=== PATIENT | female | born 1990 | race Caucasian/White ===

== ENCOUNTER 2020-05-25 19:54 | Emergency (ER) | payer OTHER, SELFPAY ==
[2020-05-25 20:07] VITALS: BP 156/96; PULSE 114; RESP 20; O2SAT 99; BMI 38.0
[2020-05-25 20:17] LABS: UTC Strep Screen (Rapid) Positive (Negative)
--- NOTE | 2020-05-25 20:18 | HMH.EDUTC ---
[facility] [place] Disposition Clinical Impression: Strep throat Disposition: Home, Self-Care Condition on Discharge: Good Instructions: Strep Throat, DI for Strep Throat Additional Instructions: Drink plenty of fluids. Take tylenol or ibuprofen for pain or fever. Take the medications as directed. Follow up with your regular doctor. GO TO THE ER FOR ANY WORSENING SYMPTOMS Throw your tooth brush away and get a new one. Prescriptions: Amoxicillin [Amoxicillin 500mg Tab] 500 mg PO TID 10 Days #30 tab Transmission Status: Received by [facility] #[id number] Referrals: PCP,No [Primary Care Provider] - Forms: Work/School Release Time of Disposition: 20:20 Medical Decision Making - Medical Records Medical records reviewed: No: I reviewed the patient's medical records. - Edmar Inquiry Pt receiving controlled substance: No Vital Signs: 05/25/20 20:07 05/25/20 20:30 Temperature 98.0 F Temperature Source Oral Pulse Rate 114 H Pulse Rate [Radial] 114 H Respiratory Rate 20 20 Blood Pressure 156/96 H Blood Pressure [Right Arm] 156/96 H Blood Pressure Mean [Right Arm] 116 Blood Pressure Source Automatic Cuff Blood Pressure Source [Right Arm] Automatic Cuff Blood Pressure Position Sitting Blood Pressure Position [Right Arm] Sitting 02 Sat by Pulse Oximetry 99 Oxygen Delivery Method Room Air Room Air - Lab Data Lab results reviewed: Yes: I reviewed the patient's lab results. Lab Results 05/25/20 20:16: Strep Scn Rapid Clinic Positive A [facility] [place] HPI - General Stated complaint: possible strep throat Time Seen by Provider: 05/25/20 20:18 Mode of Arrival: Ambulatory Source of Information: Patient Limitations: No Limitations Description of Symptoms (Recalled from Triage Doc. by RN): sore throat headache HEENT Symptoms (Recalled from RN notes): Yes Resp Symptoms (Recalled from RN notes): No Skin Symptoms (Recalled from RN notes): No MS Symptoms (Recalled from RN notes): No Functional Status (Recalled from RN notes): wnl - History of Present Illness Provider Complaint: She c/o sore throat since this morning. - Related Data Home Medications Medication Instructions Recorded Confirmed Fluoxetine HCl [Prozac] 20 mg PO DAILY 06/27/19 08/06/19 Previous Rx's Medication Instructions Recorded fluconazole 150 mg tablet 150 mg PO DAILY #10 tab 08/06/19 miconazole nitrate 2 % topical 1 applic TOPICAL BID #71 g 08/06/19 powder Azithromycin [Z-Shadi 250mg Tab*] 250 mg PO UD DOSE PK #6 tab 09/18/19 Brompheniramine/Pseudoephed/Dm 5 ml PO Q6HP PRN #240 syrup 09/18/19 [Bromfed Dm Cough Syrup] methylPREDNISolone [Medrol] 4 mg PO DIRECTED 6 Days #21 09/18/19 tab.ds.pk Amoxicillin [Amoxicillin 500mg Tab] 500 mg PO TID 10 Days #30 tab 05/25/20 Allergies Allergy/AdvReac Type Severity Reaction Status Date / Time No Known Drug Intolerances Allergy Unknown - Verified 08/06/19 14:36 - Worker's Comp Is this a Worker's Comp case?: No [facility] History - Hepatitis A Screen Drug use history?: No High risk sexual behaviors?: No History of sexually transmitted infection?: No Currently employed?: No Childcare worker?: No Do you have indoor plumbing?: Yes Do you have electricity?: Yes Attestation statement:: This patient has been screened for Hepatitis A risk factors. I have reviewed the patient's past medical history: Yes Medical History: Reports:: Depression Denies:: Diabetes Mellitus Type 1, Diabetes Mellitus Type 2 Other Surgeries: Yes: Cholecystectomy, Amputation: No Fractures: No - Social History Smoking Status: Current every day smoker Tobacco Type: cigarettes # Packs/Day (cigarettes): 1 Alcohol Intake: never Substance Use Type: denies use Occupational Status: other Housing: house - Psychiatric History Pschychiatric History:: Reports:: Depression Family Hx:: No significant family history ROS Obtained: Yes All systems reviewed & no additional complaints
[2020-05-25 20:30] VITALS: BP 156/96; PULSE 114; RESP 20; TEMP 36.7; O2SAT 99
== END 2020-05-25 20:31 | disposition home or self-care (01) ==
PROVIDERS: Emergency Provider Nurse Practitioner Family
DX: J02.0 Streptococcal pharyngitis (principal); F33.1 Major depressive disorder, recurrent, moderate; F17.210 Nicotine dependence, cigarettes, uncomplicated; Z90.49 Acquired absence of other specified parts of digestive tract
CPT/HCPCS: 87880; 99201

== ENCOUNTER 2020-05-28 22:22 | Emergency (ER) | payer OTHER, SELFPAY ==
[2020-05-28 22:30] VITALS: BP 139/77; PULSE 117; RESP 16; O2SAT 97
[2020-05-28 22:32] VITALS: BP 139/77; PULSE 116; RESP 16; TEMP 37.9; O2SAT 98; BMI 38.0
--- NOTE | 2020-05-28 22:41 | CT_ITS ---
PROCEDURE: CT SOFT TISSUE NECK W CON CLINICAL HISTORY: tonsil abscess Peritonsillar abscess, pain swelling COMPARISON: No exams were available for comparison TECHNIQUE: Oral Contrast: None IV Contrast: 75 mL Optiray 350 Axial images obtained with sagittal and coronal reformats. All CT scans at the facility use one or more dose reduction, viz: automated exposure control, ma/kV adjustment per patient size (including targeted exams where dose is matched to indication, i.e. head), or iterative reconstruction technique. FINDINGS: There are prominent palatine tonsils right greater than left with some heterogeneous density but no definite ring-enhancing abscess. No soft tissue gas apparent. There are scattered mildly prominent cervical lymph nodes. The lung apices are clear. There is reversal of the cervical lordosis. The epiglottis and glottic region have an unremarkable appearance. The adenoids are slightly prominent with mild prominence of the nasopharyngeal mucosa. There is mild mucosal thickening of the maxillary sinuses. IMPRESSION: 1. Prominent palatine tonsils right more extensive than left with some heterogeneous density suggesting tonsillitis/pharyngitis. No definite abscess. 2. Mild prominence of the adenoids with mildly prominent cervical lymph nodes Dictated b Jefe Mclain MD 05/29/2020 09:07 Jefe Mclain MD in [place] 05/29/2020 09:07
--- NOTE | 2020-05-28 22:51 | HMH.EDGENADL ---
ED Disposition Clinical Impression: Pharyngitis Qualifiers: Pharyngitis/tonsillitis etiology: streptococcus Qualified Code(s): J02.0 - Streptococcal pharyngitis Disposition: Home, Self-Care Condition on Discharge: Good Instructions: DI for Pharyngitis/Tonsillopharyngitis -- Adult Additional Instructions: gargle and use meds and see dr langston saturday 1 pm Prescriptions: predniSONE [Prednisone 20mg Tab] 20 mg PO BID #10 tab Transmission Status: Pending to [facility] #[id number] Referrals: Roxie Carey PA [Primary Care Provider] - Sylvester Langston MD [Staff Physician] - - Critical Care Critical Care Time: No Attestation: On 05/28/20, the high probability of a clinically significant, sudden or life threatening deterioration of the following system(s) required my full and direct attention, intervention and personal management. The time I documented below is in addition to time spent performing reported procedures but includes the following listed in this critical care notation. Medical Decision Making - Medical Records Medical records reviewed: Yes: I reviewed the patient's medical records. - Edmar Inquiry Pt receiving controlled substance: No Vital Signs: 05/28/20 22:30 05/28/20 22:32 05/28/20 23:00 Temperature 100.2 F H Temperature Source Oral Pulse Rate [Right] 117 H 116 H 107 H Respiratory Rate 16 16 18 Blood Pressure [Right Arm] 139/77 139/77 112/53 L Blood Pressure Mean [Right Arm] 97 97 72 Blood Pressure Source [Right Arm] Automatic Cuff Automatic Cuff Automatic Cuff Blood Pressure Position [Right Arm] Supine Sitting Supine 02 Sat by Pulse Oximetry 97 98 96 Oxygen Delivery Method Room Air Room Air Room Air - Lab Data Lab results reviewed: Yes: I reviewed the patient's lab results. Lab Results 05/28/20 22:51: Urine Color Dk yellow, Urine Appearance Sl cloudy, Urine pH 5.5, Ur Specific [place] >= 1.030, Urine Protein Trace, Urine Glucose (UA) Negative, Urine Ketones 1+, Urine Blood Negative, Urine Nitrate Negative, Urine Bilirubin Negative, Urine Urobilinogen 0.2, Ur Leukocyte Esterase Negative, Urine WBC 3-5, Ur Squamous Epith Cells 3-5, Amorphous Sediment Trace, Urine Mucus 1+ 05/28/20 22:51: WBC 10.8, RBC 4.72, Hgb 15.0, Hct 43.0, MCV 91.0, MCH 31.7 H, MCHC 34.8, RDW 12.2, Plt Count 212, MPV 8.6, Neut % (Auto) 81.4 H, Lymph % (Auto) 13.3, [place] % (Auto) 4.6, Eos % (Auto) 0.6, Baso % (Auto) 0.2, Neut # (Auto) 8.8 H, Lymph # (Auto) 1.4, [place] # (Auto) 0.5, Eos # (Auto) 0.1, Baso # (Auto) 0.0 05/28/20 22:51: Sodium 136, Potassium 3.6, Chloride 100, Carbon Dioxide 25, Anion Gap 14.6, BUN 13, Creatinine 0.60, Estimated Creat Clear 243, Estimated GFR 117, Est GFR ( Amer) 141, Glucose 123 H, Calcium 9.1, Total Bilirubin 0.5, AST 22, ALT 22, Alkaline Phosphatase 100, Total Protein 8.7 H, Albumin 4.4, Globulin 4.3 H, Albumin/Globulin Ratio 1.0 L 05/28/20 22:51: Serum HCG, Qual Negative Result diagrams: 05/28/20 22:51 05/28/20 22:51 Orders (Tests/Meds): ED MEDICATIONS Generic Name Dose Route Start Last Admin Trade Name Freq PRN Reason Stop Dose Admin Ceftriaxone Sodium 1 gm/ 50 mls @ 100 mls/hr 05/28/20 22:45 05/28/20 22:51 Sodium Chloride IV 06/11/20 22:44 100 mls/hr Q24H KADY Administration Protocol Sodium Chloride 1,000 mls @ 999 mls/hr 05/28/20 22:45 05/28/20 22:51 Sod Chlor 0.9% 1000ml Bag IV 05/28/20 23:45 999 mls/hr .Q1H1M KADY Administration Discontinued Medications Generic Name Dose Route Start Last Admin Trade Name Freq PRN Reason Stop Dose Admin Ioversol 75 ml 05/28/20 23:43 05/28/20 23:44 Rad-Optiray 350 100ml Vial IV 05/28/20 23:44 75 ml ONCE ONE Administration Protocol Ketorolac Tromethamine 30 mg 05/28/20 22:44 05/28/20 22:51 Toradol 30mg/Ml Vial IV 05/28/20 22:45 30 mg ONCE ONE Administration Methylprednisolone Sodium Succinate 125 mg 05/28/20 22:44 05/28/20 22:51 Solu-Medrol 125mg/2ml Vial
[2020-05-28 23:00] VITALS: BP 112/53; PULSE 107; RESP 18; O2SAT 96
[2020-05-28 23:03] LABS: Basophils % 0.2 % (0.1-2.0); Eosinophils # 0.1 K/mm3 (0.0-0.4); Eosinophils % 0.6 % (0.1-12.0); Lymphocytes # 1.4 K/mm3 (0.7-4.5); Lymphocytes % 13.3 % (10-50); Mean Corpuscular HGB Conc 34.8 g/dL (31.8-35.4); Mean Corpuscular Hemoglobin 31.7 pg (27.0-31.2); Mean Platelet Volume 8.6 fl (7.4-10.4); Monocytes # 0.5 K/mm3 (0.1-1.0); Monocytes % 4.6 % (1.7-9.3); Neutrophils # 8.8 K/mm3 (1.8-7.8); Neutrophils % 81.4 % (37.0-80.0); Platelet Count 212 K/mm3 (142-424); Red Blood Count 4.72 M/mm3 (4.20-5.40); Red Cell Distribution Width 12.2 % (11.5-17.5); White Blood Count 10.8 K/mm3 (4.8-10.8)
[2020-05-28 23:11] LABS: Microscopic, Urine URINE MICROSCOPIC (MICROSCOPIC)
[2020-05-28 23:15] LABS: Alanine Aminotransferase 22 U/L (12-78); Albumin Level 4.4 g/dl (3.5-5.0); Alkaline Phosphatase 100 U/L (38-126); Anion Gap 14.6 mEq/L (5-15); Aspartate Amino Transferase 22 U/L (14-36); Bilirubin,Total 0.5 mg/dl (0.2-1.3); Blood Urea Nitrogen 13 mg/dl (7-17); Calcium 9.1 mg/dl (8.4-10.2); Carbon Dioxide 25 mmol/L (22.0-30.0); Chloride 100 mmol/L (98-107); Creatinine Clearance Estimated 243 mL/min (50-200); Estimated Glomerular Filt Rate 117 ml/min (>60); GFR (African American) 141 ML/MIN (>60); Globulin 4.3 g/dL (1.3-3.2); Glucose 123 mg/dl (74-100); Potassium 3.6 mmoL/L (3.5-5.1); Sodium 136 mmol/L (136-145); Total Protein,Serum 8.7 g/dl (6.3-8.2)
[2020-05-28 23:18] LABS: HCG Qualitative, Serum Negative (Negative)
[2020-05-28 23:19] LABS: Appearance,Urine SL CLOUDY (Clear); Blood, Urine Negative (Negative); Color,Urine DK YELLOW (Yellow); Glucose,Urine (UA) Negative (Negative); Ketones,Urine 1+ (Negative); Leukocyte Esterase,Urine Negative (Negative); Nitrate,Urine Negative (Negative); PH,Urine 5.5 (5.0-8.5); Protein,Urine TRACE (Negative); Specific Gravity, Urine >= 1.030 (1.005-1.030); Urobilinogen,Urine 0.2 EU/dl (0.2)
[2020-05-28 23:20] LABS: Amorphous Sediment,Urine Trace /lpf; Bilirubin,Urine Negative (Negative); Mucus,Urine 1+ /lpf
[2020-05-29] VITALS: BP 121/64; PULSE 94; RESP 18; O2SAT 98
[2020-05-29 00:32] VITALS: BP 118/62; PULSE 96; RESP 16; TEMP 37.3; O2SAT 98
== END 2020-05-29 00:37 | disposition home or self-care (01) ==
PROVIDERS: Emergency Provider Emergency Medicine; PCP Physician Assistant
DX: J02.0 Streptococcal pharyngitis (principal); F33.1 Major depressive disorder, recurrent, moderate; F17.210 Nicotine dependence, cigarettes, uncomplicated
CPT/HCPCS: 70491; 80053; 81001; 84703; 85025; 96365; 96367; 96375; 99284; Q9967

== ENCOUNTER → 2020-06-13 11:59 | Outpatient (CLI) | payer OTHER, SELFPAY ==
--- NOTE | 2020-06-13 12:20 | ECG_ITS ---
APPROVED REPORT Exam: Resting ECG HR:97 bpm ECG Measurements Heart Rate 97 AXES ID 158 P 47 QRSd 78 QRS 52 QT 348 T 44 QTc 441 <Conclusion> Sinus rhythm with motion artifact Incomplete RBBB Borderline ECG Electronically signed by : Mik Celaya, 06/13/2020 18:37:26
[2020-06-13 12:28] LABS: Basophils % 0.1 % (0.1-2.0); Eosinophils # 0.3 K/mm3 (0.0-0.4); Eosinophils % 2.8 % (0.1-12.0); Hematocrit 42.6 % (37.0-47.0); Hemoglobin 14.6 g/dL (12.2-16.2); Lymphocytes # 2.3 K/mm3 (0.7-4.5); Lymphocytes % 24.9 % (10-50); Mean Corpuscular HGB Conc 34.3 g/dL (31.8-35.4); Mean Corpuscular Hemoglobin 31.1 pg (27.0-31.2); Mean Corpuscular Volume 90.9 fl (81-99); Mean Platelet Volume 8.2 fl (7.4-10.4); Monocytes # 0.3 K/mm3 (0.1-1.0); Monocytes % 3.7 % (1.7-9.3); Neutrophils # 6.2 K/mm3 (1.8-7.8); Neutrophils % 68.5 % (37.0-80.0); Platelet Count 245 K/mm3 (142-424); Red Blood Count 4.69 M/mm3 (4.20-5.40); Red Cell Distribution Width 12.5 % (11.5-17.5); White Blood Count 9.1 K/mm3 (4.8-10.8)
[2020-06-13 12:32] LABS: Urine Pregnancy, HCG Qual. Negative (Negative)
[2020-06-13 12:58] LABS: Chloride 106 mmol/L (98-107)
[2020-06-13 12:59] LABS: Potassium 4.4 mmoL/L (3.5-5.1); Sodium 140 mmol/L (136-145)
[2020-06-13 13:01] LABS: Alanine Aminotransferase 24 U/L (12-78); Alkaline Phosphatase 70 U/L (38-126); Anion Gap 10.4 mEq/L (5-15); Aspartate Amino Transferase 21 U/L (14-36); Bilirubin,Total 0.6 mg/dl (0.2-1.3); Blood Urea Nitrogen 8 mg/dl (7-17); Carbon Dioxide 28 mmol/L (22.0-30.0); Estimated Glomerular Filt Rate 144 ml/min (>60); GFR (African American) 174 ML/MIN (>60)
[2020-06-13 13:02] LABS: Albumin Level 4.1 g/dl (3.5-5.0); Albumin/Globulin Ratio 1.3 (1.1-1.8); Calcium 9.4 mg/dl (8.4-10.2); Globulin 3.2 g/dL (1.3-3.2); Glucose 94 mg/dl (74-100); Total Protein,Serum 7.3 g/dl (6.3-8.2)
[2020-06-13 15:25] LABS: Coronavirus 19 IgG Antibody Negative (Negative); Coronavirus 19 IgM Antibody Negative (Negative)
== END ==
PROVIDERS: Visit Provider Otolaryngology
DX: Z01.818 Encounter for other preprocedural examination (principal); J35.8 Other chronic diseases of tonsils and adenoids; J03.01 Acute recurrent streptococcal tonsillitis
CPT/HCPCS: 36415; 80053; 81025; 85025; 86328; 93005

== ENCOUNTER 2020-06-14 05:53 | Day surgery (SDC) | payer OTHER, SELFPAY ==
[2020-06-10 14:45] VITALS: BMI 38.0
[2020-06-14] VITALS (9 sets, daily range): BP systolic 116–161; BP diastolic 68–117; PULSE 84–94; RESP 12–21; TEMP 36.2–36.6; O2SAT 95–100
--- NOTE | 2020-06-14 07:09 | HMH.ANESCL ---
[facility] Anesthesia Checklist - Structural Data Admitted From: Home Planned Operative Procedure/s: tonsillectomy Consent for Planned Operative Procedure(s) Verified: Yes - Additional verifications Anesthesia Reactions: No Hx Blood Transfusions: No Blood Transfusion Reaction: No - Airway Assessment C-Spine Mobility Assessed: Yes TMJ Mobility Assessed: Yes Dentition: Poor Dentition - Neurological Assessment Level of Consciousness: Awake, Alert, Appropriate - Anesthesia Plan Anesthesia Risk discussed: Yes Anesthesia Plan: Verified ASA Class: III Anesthesia Type: General [facility] History I have reviewed the patient's past medical history: Yes Medical History: Reports:: Depression Denies:: Cancer, Diabetes Mellitus Type 1, Diabetes Mellitus Type 2, Internal Pacemaker, MRSA, Seizures *Have you ever received a pneumonia vaccine?: No *Have you received a flu vaccine this season?: Yes (2019) Other Medical History: Denies: Blood Transfusion Reaction Anesthesia experience/problems:: none Other Surgeries: Yes: Cholecystectomy, . No: Pacemaker Amputation: No Fractures: No - *Social History Last grade of school completed: 9th or 10th Smoking Status: Current every day smoker Tobacco Type: cigarettes # Packs/Day (cigarettes): 1 Alcohol Intake: never Substance Use Type: denies use *Occupational Status:: employed Housing: house Household Members: family, children *Travel in the last 8 weeks: None - Psychiatric History Pschychiatric History:: Reports:: Depression Family Hx:: Unable to obtain
--- NOTE | 2020-06-14 08:57 | HMH.OPNOTE ---
Date of procedure: 06/14/20 Pre-op Diagnosis:: 1. Obstructive tonsillitis Post-op Diagnosis:: 1. Obstructive tonsillitis 2. Thickened elongated obstructive uvula Procedure performed:: 1. Tonsillectomy 2. Partial uvulectomy Surgeon:: Sylvester Langston MD AUTOMATION TESTER:: Nasir Toro Anesthesia: GETA Estimated blood loss (mL): 15 Operative findings:: same Operative note:: With the patient under general anesthesia having been given 1 g of Ancef and 10 mg of Decadron the Swann Dangelo gag was inserted. The tonsils were extremely large and they were touching. Using the harmonic scalpel the right tonsil was removed and submitted and then the left tonsil was removed and submitted. At that point it was evident that the uvula was very thickened and very enlarged and accordingly a partial uvulectomy was done. Surgicel snow was placed in both tonsillar cavities and the pillars were oversewn and the base of the uvula was also oversewn with 2-0 Vicryl. Blood loss for all of the procedure was 15 cc and the bleeding was all stopped. The patient tolerated the procedure well and was sent to recovery in good general condition. Condition: stable Disposition: PACU Complications:: none
--- NOTE | 2020-06-14 09:11 | P.PN_ITS ---
[facility] Anesthesia Record Part I Intake, IV Amount: 1,500 Estimated blood loss (mL): 20 Urine output (mL): 0 Blood Pressure: 160/100 SaO2: 96 Pulse Rate: 90 Respiratory Rate: 12 Temperature: 97.5 F Patient is:: Awake, Stable Stable to PACU at:: 09:05
--- NOTE | 2020-06-15 10:18 | P.PN_ITS ---
[facility] Anesthesia Record Part II Discharge Time: 09:35 Destination: Surgical Day Care (OP Surgery) PACU nurse assessment reviewed?: Yes Patient Condition:: Good Anesthesia Complications:: None Swallowing reflex intact?: Yes Cyanosis?: No Blood Pressure: 132/77 Pulse Rate: 90 Temperature: 97.5 F Mental Status: Unresponsive Pain level:: 5 Nausea and/or vomitting:: None Intake, IV Amount: 0
[2020-06-15 10:20] VITALS: BP 132/77; PULSE 90; TEMP 36.4
== END 2020-06-14 10:05 ==
LOC: OR 05:54
PROVIDERS: PCP Physician Assistant; Visit Provider Otolaryngology
PROC: (CPT 42826; principal; 2020-06-14 07:30)
DX: J03.01 Acute recurrent streptococcal tonsillitis (principal); J35.8 Other chronic diseases of tonsils and adenoids; K13.79 Other lesions of oral mucosa; F32.9 Major depressive disorder, single episode, unspecified; Z90.49 Acquired absence of other specified parts of digestive tract; Z72.0 Tobacco use
CPT/HCPCS: 42826; 42140; 96374; J2405; J2710

== ENCOUNTER → 2021-04-05 18:01 | Outpatient (CLI) | payer OTHER, SELFPAY ==
[2021-04-05 18:33] LABS: Alanine Aminotransferase 27 U/L (12-78); Albumin Level 4.5 g/dl (3.5-5.0); Albumin/Globulin Ratio 1.5 (1.1-1.8); Alkaline Phosphatase 78 U/L (38-126); Anion Gap 11.4 mEq/L (5-15); Aspartate Amino Transferase 26 U/L (14-36); Bilirubin,Total 0.5 mg/dl (0.2-1.3); Blood Urea Nitrogen 10 mg/dl (7-17); Calcium 9.3 mg/dl (8.4-10.2); Carbon Dioxide 26 mmol/L (22.0-30.0); Chloride 105 mmol/L (98-107); Chol/HDL Ratio 4.9 (1-3.5); Cholesterol 148 mg/dl (140-200); Estimated Glomerular Filt Rate 144 ml/min (>60); GFR (African American) 174 ML/MIN (>60); Glucose 91 mg/dl (74-100); HDL Cholesterol 30 mg/dl (40-60); Potassium 4.4 mmoL/L (3.5-5.1); Sodium 138 mmol/L (136-145); Total Protein,Serum 7.5 g/dl (6.3-8.2); Triglycerides 170 mg/dl (30-150); VLDL Cholesterol 34 mg/dL (0-40)
[2021-04-05 18:40] LABS: Basophils % 0.3 % (0.1-2.0); Eosinophils # 0.4 K/mm3 (0.0-0.4); Eosinophils % 5.3 % (0.1-12.0); Hematocrit 41.1 % (37.0-47.0); Hemoglobin 14.7 g/dL (12.2-16.2); Lymphocytes # 2.4 K/mm3 (0.7-4.5); Lymphocytes % 32.9 % (10-50); Mean Corpuscular HGB Conc 35.8 g/dL (31.8-35.4); Mean Corpuscular Hemoglobin 31.9 pg (27.0-31.2); Mean Platelet Volume 9.2 fl (7.4-10.4); Monocytes # 0.4 K/mm3 (0.1-1.0); Monocytes % 5.4 % (1.7-9.3); Neutrophils % 56.1 % (37.0-80.0); Platelet Count 263 K/mm3 (142-424); Red Blood Count 4.62 M/mm3 (4.20-5.40); Red Cell Distribution Width 12.7 % (11.5-17.5); White Blood Count 7.2 K/mm3 (4.8-10.8)
[2021-04-05 18:50] LABS: Free T4 (Free Thyroxine) 1.07 ng/dl (0.78-2.19)
[2021-04-05 19:04] LABS: Thyroid Stimulating Hormone 2.49 uIU/mL (0.465-4.68)
== END ==
PROVIDERS: Visit Provider Physician Assistant
DX: R42 Dizziness and giddiness (principal); R53.83 Other fatigue
CPT/HCPCS: 80053; 80061; 84439; 84443; 85025

== ENCOUNTER 2021-07-07 11:16 | Emergency (ER) | payer OTHER, SELFPAY ==
[2021-07-07 12:05] VITALS: BP 142/70; PULSE 91; RESP 16; TEMP 36.7; O2SAT 96; BMI 39.5
--- NOTE | 2021-07-07 13:08 | HMH.EDUTC ---
[facility] [place] Disposition Clinical Impression: Low back strain Qualifiers: Encounter type: initial encounter Qualified Code(s): S39.012A - Strain of muscle, fascia and tendon of lower back, initial encounter Low back pain with sciatica Qualifiers: Chronicity: acute Back pain laterality: right Sciatica laterality: sciatica of right side Qualified Code(s): M54.41 - Lumbago with sciatica, right side Disposition: Home, Self-Care Condition on Discharge: Good Instructions: Low Back Pain, DI for Low Back Pain, Cyclobenzaprine, Ketorolac Injection Additional Instructions: Go home and rest. It would be best if you rested tomorrow too. No heavy lifting. No twisting. Take the oral medications as directed. The muscle relaxer (cyclobenzaprine-flexeril) will make you drowsy, so don't drive or operate heavy machinery after taking it. Don't start the oral steroids (medrol dose pack) until tomorrow, since you had the shots in here today. Follow up with your regular doctor. GO TO THE ER FOR ANY WORSENING SYMPTOMS OR CONCERN, ESPECIALLY BOWEL OR BLADDER ISSUES, SADDLE AREA NUMBNESS, FEVER, ETC Prescriptions: Cyclobenzaprine HCl [Cyclobenzaprine 10mg Tab] 10 mg PO BIDP PRN #20 tab PRN Reason: Muscle Spasm Transmission Status: Received by [facility] methylPREDNISolone [Medrol] 4 mg PO DIRECTED 6 Days #21 packet Transmission Status: Received by [facility] Referrals: Roxie Carey PA [Primary Care Provider] - Forms: Work/School Release Time of Disposition: 13:17 Medical Decision Making - Medical Records Medical records reviewed: No: I reviewed the patient's medical records. - Edmar Inquiry Pt receiving controlled substance: No Vital Signs: 07/07/21 12:05 07/07/21 13:24 Temperature 98.0 F 98.0 F Temperature Source Oral Pulse Rate 91 H Pulse Rate [Right Radial] 91 H Respiratory Rate 16 16 Blood Pressure 142/70 H Blood Pressure [Right Arm] 142/70 H Blood Pressure Mean [Right Arm] 94 Blood Pressure Source [Right Arm] Automatic Cuff Blood Pressure Position [Right Arm] Sitting 02 Sat by Pulse Oximetry 96 Oxygen Delivery Method Room Air - Lab Data Lab results reviewed: Yes: I reviewed the patient's lab results. Orders (Tests/Meds): ED MEDICATIONS Discontinued Medications Generic Name Dose Route Start Last Admin Trade Name Katrin PRN Reason Stop Dose Admin Ketorolac Tromethamine 60 mg 07/07/21 12:32 07/07/21 12:46 Ketorolac 60mg/2ml Vial IM 07/07/21 12:33 60 mg ONCE ONE Administration Methylprednisolone Sodium Succinate 125 mg 07/07/21 12:32 07/07/21 12:46 Methylprednisolone Sod Succ 125mg Vial IM 07/07/21 12:33 125 mg ONCE ONE Administration [facility] [place] HPI - General Stated complaint: back pains Time Seen by Provider: 07/07/21 12:10 Mode of Arrival: Ambulatory Source of Information: Patient Limitations: No Limitations Description of Symptoms (Recalled from Triage Doc. by RN): Pt c/o back pain that extends down her rt leg x2 days HEENT Symptoms (Recalled from RN notes): No Resp Symptoms (Recalled from RN notes): No Skin Symptoms (Recalled from RN notes): No MS Symptoms (Recalled from RN notes): Yes (back pain extending down rt leg) Functional Status (Recalled from RN notes): n/a - History of Present Illness Provider Complaint: She c/o low back pain that radiates down her right leg that began yesteday. She has a history of low back pain, but it has never radiated down her legs. She denies any urinary complaints and she does not get UTIs at all usually. She denies any recent fall or injury. She has been having to work harder and lift heavy things at her work more than normal, but she did not realize she had injured herself in anyway, until her pain worsened and started radiating down her leg. - Related Data Previous Rx's Medication Instructions Recorded hydroxyzine pamoate 25 mg capsule 25 mg PO QHS #30 cap 04/05/21 me
[2021-07-07 13:24] VITALS: BP 142/70; PULSE 91; RESP 16; TEMP 36.7; O2SAT 96
== END 2021-07-07 13:25 | disposition home or self-care (01) ==
PROVIDERS: Emergency Provider Nurse Practitioner Family; PCP Physician Assistant
DX: S39.012A Strain of muscle, fascia and tendon of lower back, initial encounter (principal); X50.0XXA Overexertion from strenuous movement or load, initial encounter; Y92.89 Other specified places as the place of occurrence of the external cause
CPT/HCPCS: 96372; 99202; G0463

== ENCOUNTER → 2021-11-27 16:00 | Outpatient (CLI) | payer OTHER, SELFPAY | PROVIDERS: Visit Provider Nurse Practitioner Family | DX: Z20.822 Contact with and (suspected) exposure to COVID-19 (principal) | CPT/HCPCS: C9803; U0003; U0005 ==

== ENCOUNTER 2022-07-15 11:42 | Emergency (ER) | payer OTHER, SELFPAY ==
[2022-07-15 11:50] VITALS: BP 159/81; PULSE 112; RESP 18; TEMP 36.7; O2SAT 98; BMI 42.0
--- NOTE | 2022-07-15 12:18 | EXP.UTC ---
Discharge Plan Disposition Patient Disposition: Home, Self-Care Condition: Good Prescriptions Prescriptions: New benzonatate [benzonatate] 100 mg capsule 100 mg PO TIDP PRN (Reason: Cough) Qty: 30 0RF rfpkxhitnmqjwts-uufttuwrl-VL [Bromfed DM] 2-30-10 mg/5 mL Syrup 5 ml PO Q6H PRN (Reason: Cough) Qty: 240 0RF ibuprofen [IBU] 800 mg tablet 800 mg PO Q8HP PRN (Reason: Moderate Pain) Qty: 30 0RF No Action meclizine 12.5 mg tablet 12.5 mg PO TID PRN (Reason: dizziness) Qty: 30 0RF Referrals Follow up/Referrals: Leticia Selby APRN [Primary Care Provider] - See instructions Activity Restrictions/Add. Instructions Additional Instructions/Restrictions: Drink plenty of fluids. Take tylenol or ibuprofen for pain or fever. Take the medications as directed. Follow up with your regular doctor. GO TO THE ER FOR ANY WORSENING SYMPTOMS Throw your tooth brush away and get a new one. Quarantine until you know the results of your covid-19 test. Notify your school or workplace of your results and follow their instructions regarding return to work/school. Don't start the oral steroids until tomorrow, since you had the shot here today. The cough medication (promethazine dm) will make you drowsy, so don't drive or operate heavy machinery after taking it. The pyridium will make your urine turn orange, this is an expected side effect. It will stain your clothes if it comes into contact with them. We will culture the urine. That will tell what bacteria is causing your infection and which antibiotics will treat it best. Sometimes the first antibiotic we prescribe turns out to not work against different bacteria. So, make sure you follow up within 3 days if you are not getting better. Clinical Impressions Clinical Impression: Viral syndrome, Acute viral pharyngitis Stand Alone Forms Stand Alone Forms: Work/School Release Instructions Patient Instructions: DI for Viral Syndrome, Coronavirus Disease 2019, Preventing the Spread of Coronavirus Discharge Instructions Discharge ED Provider: Lionel Paulino [facility] General Stated complaint: headache,body aches,stomach pain Mode of Arrival: Ambulatory Source of Information: Patient Limitations: No Limitations Time Seen by Provider: 07/15/22 12:16 Description of Symptoms (Recalled from Triage Doc. by RN): PATIENT C/O BODY ACHES, HEADACHE, WEAKNESS AND CHILLS THAT STARTED YESTERDAY HEENT Symptoms (Recalled from RN notes): Yes Resp Symptoms (Recalled from RN notes): No Skin Symptoms (Recalled from RN notes): No MS Symptoms (Recalled from RN notes): No Functional Status (Recalled from RN notes): WNL History of Present Illness Provider Complaint: She states that for the past 1 day she has had generalized body aches, chills, low grade fever and sore throat. Related Data Previous Rx's Medication Instructions Recorded meclizine 12.5 mg tablet 12.5 mg PO TID PRN dizziness #30 04/05/21 tabs benzonatate 100 mg capsule 100 mg PO TIDP PRN Cough #30 caps 07/15/22 acwgwveswqrisil-gblyjzhlwgvqudc-PT 5 ml PO Q6H PRN Cough #240 mL 07/15/22 2 mg-30 mg-10 mg/5 mL oral syrup (Bromfed DM) ibuprofen 800 mg tablet (IBU) 800 mg PO Q8HP PRN Moderate Pain 07/15/22 #30 tabs Allergies Allergy/AdvReac Type Severity Reaction Status Date / Time No Known Allergies Allergy Verified 04/05/21 13:40 Worker's Comp Is this a Worker's Comp case?: No PFSH PFSH Medical History Anxiety Depression Migraine Surgical History History of section History of cholecystectomy History of tonsillectomy Social History Smoking Status: Current every day smoker tobacco type: cigarettes packs per day: 1 second hand exposure: No alcohol intake: never substance use type: denies use current occupational
[2022-07-15 12:57] VITALS: BP 159/81; PULSE 112; RESP 18; TEMP 36.7; O2SAT 98
[2022-07-15 12:57] LABS: UTC Strep Screen (Rapid) Negative (Negative)
== END 2022-07-15 13:00 | disposition home or self-care (01) ==
PROVIDERS: Emergency Provider Nurse Practitioner Family; PCP Nurse Practitioner Family
DX: U07.1 COVID-19 (principal)
CPT/HCPCS: 87880; 99212; C9803; G0463; U0003; U0005

== ENCOUNTER 2024-05-29 16:39 | Outpatient (CLI) | payer OTHER, SELFPAY ==
[2024-06-01 21:08] LABS: Neisseria gonorrhoeae, NAA Negative (Negative)
== END 2024-05-29 23:59 | disposition home or self-care (01) ==
LOC: LAB.DROPOF 16:40
PROVIDERS: PCP Obstetrics & Gynecology; Visit Provider Obstetrics & Gynecology
DX: R10.2 Pelvic and perineal pain (principal)
CPT/HCPCS: 87491; 87591

== ENCOUNTER 2025-01-19 13:48 | Emergency (ER) | payer OTHER, SELFPAY ==
--- NOTE | 2025-01-19 13:50 | ED_ITS ---
Discharge Plan Disposition Patient Disposition: Home, Self-Care Prescriptions Prescriptions: No Action topiramate 25 mg tablet 25 mg PO BID Referrals Follow up/Referrals: Leticia Selby APRN [Primary Care Provider] - See instructions Activity Restrictions/Add. Instructions Additional Instructions/Restrictions: Continue following with your PCP for hypertension and weight loss. Know that most weight loss medications will cause hypertension, so make sure to inform them of that as well. Clinical Impressions Clinical Impression: Hypertension, Encounter for medical assessment Print Language Print Language: Nepalese Discharge ED Provider: Reynold Alvarado Adult HPI <JOSE Alonzo - Last Filed: 01/19/25 13:59> General Chief complaint: Recheck/Abnormal Lab/Rx Stated complaint: high b/p, headache, numbness/weakness in legs Time Seen by Provider: 01/19/25 13:50 Related Data Home Medications ?Medication ?Instructions ?Recorded ?Confirmed topiramate 25 mg tablet 25 mg PO BID 07/08/24 07/08/24 Allergies Allergy/AdvReac Type Severity Reaction Status Date / Time No Known Allergies Allergy Verified 07/08/24 13:30 <Rc Summers MD - Last Filed: 01/19/25 14:52> History of Present Illness HPI narrative: Please note that above description of symptoms, in this electronic medical record under categorization of recalled from ER triage doctor by RN are reflective of an initial nursing assessment, however, is not reflective of my full history and physical exam that was personally taken and clarified. Consequentially, this preceding description of symptoms, which may include the patient's categorized chief complaint in the EMR, do not reflect my personal clinical impression, and the ultimate description of history of present illness and patient stated complaints should be deferred to this section of the note. Unless stated otherwise or congruent with this section of the note, additional signs, symptoms, or incongruence should be interpreted as inaccurate with my clinical impression. PFSH <JOSE Alonzo - Last Filed: 01/19/25 13:59> [facility] Disclaimer: The information contained in this section may have been updated after the patient was seen, as this information can be updated by other users. Medical History Anxiety Migraine Depression Surgical History History of tonsillectomy History of section History of cholecystectomy Social History Smoking Status: Current every day smoker tobacco type: cigarettes packs per day: 1 second hand exposure: No alcohol intake: never substance use type: denies use current occupational status: employed Travel in the last 8 weeks: None household members: family and children housing: house current occupation: [employer] caffeine: Yes Have you lived/traveled outside [place] in past 30 days?: No Contact w/someone who lives/traveled outside [place] past 30 days?: No Exposure to someone with infectious disease in past 14 days?: No Do you have a fever (greater than 100.4 F or 38 C)?: No Have you tested positive for COVID-19: No Exposed to someone with COVID-19 in past 14 days?: No Do you have a sore throat?: No Do you have a cough?: No Do you have any weakness?: Yes Do you have any diarrhea?: No Are you experiencing any unusual bleeding?: No Do you have any muscle aches/pain?: No Do you have any abdominal pain?: No Are you experiencing loss of taste or smell?: No Other Medical History Have you received the Flu Vaccine for this season: Yes (2019) Have you received the Pneumonia Vaccine: Yes <JOSE Alonzo - Last Filed: 01/19/25 13:59> ROS Obtained: Yes Systems reviewed as appropriate & no additional complaints except as documented Physical Exam <JOSE Alonzo - Last Filed: 01/19/25 13:59> General General appearance: alert and in no apparent distress Head Head exam: atraumatic and normal inspection Eye Eye exam: Present normal appearance, PERRL and EOMI ENT ENT exam: Present normal exam, normal oropharynx and mucous membranes moist Neck Neck exam: Present normal inspection, full ROM and trachea midline; Absent lymphadenopathy Chest Chest inspection: Present normal inspection and symmetric chest wall rise Respiratory Respiratory exam: Present normal lung sounds bilaterally; Absent accessory muscle use Cardiovascular Cardiovascular exam: Present regular rate, normal rhythm, normal heart sounds, +S1 and +S2 Abdominal Exam Abdominal exam: Present soft and normal bowel sounds; Absent tenderness, guarding or rebound Extremities Exam Extremities exam: Present normal inspection and full ROM Neurological Exam Neurological exam: Present alert, oriented X3 and CN II-XII intact Psychiatric Psychiatric exam: Present normal affect and normal mood Skin Skin exam: Present warm, dry and normal color Lymphatic Lymphatic Findings: no adenopathy Medical Decision Making <JOSE Alonzo - Last Filed: 01/19/25 13:59> Medical Records Screening: Per USPSTF and CDC recommendations, given the prevalence of disease in our region, it is our hospital?s policy to screen for HIV and viral Hepatitis for all patients aged 18 and over and those with ongoing risk factors. Vital Signs: 01/19/25 14:00 01/19/25 14:30 01/19/25 16:46 Temperature 98.2 F 98.0 F Temperature Source Oral Oral Pulse Rate 88 90 Pulse Rate [Left Radial] 103 H Respiratory Rate 20 18 Blood Pressure 143/92 H 160/99 H Blood Pressure [Right Arm] 154/97 H Blood Pressure Mean [Right Arm] 116 Blood Pressure Source Automatic Cuff Blood Pressure Position Sitting 02 Sat by Pulse Oximetry 99 99 Oxygen Delivery Method Room Air Room Air Room Air Lab Data Lab Results 01/19/25 13:57: Urine Color Yellow, Urine Appearance Clear, Urine pH 6.0, Ur Specific [place] 1.020, Urine Protein Negative, Urine Glucose (UA) Negative, Urine Ketones Negative, Urine Blood Negative, Urine Nitrate Negative, Urine Bilirubin Negative, Urine Urobilinogen 0.2, Ur Leukocyte Esterase 1+ A, Urine RBC None, Urine WBC 3-5, Ur Squamous Epith Cells 5-10, Urine Bacteria Trace, Urine Mucus 1+ 01/19/25 15:07: WBC 7.2, RBC 4.09 L, Hgb 12.7, Hct 37.3, MCV 91.2, MCH 31.1, MCHC 34.0, RDW 11.5, Plt Count 235, MPV 10.4, Neut % (Auto) 61.5, Lymph % (Auto) 27.3, [place] % (Auto) 5.0, Eos % (Auto) 6.1, Baso % (Auto) 0.0 L, Neut # (Auto) 4.4, Lymph # (Auto) 2.0, [place] # (Auto) 0.4, Eos # (Auto) 0.4, Baso # (Auto) 0.0, Sodium 142, Potassium 3.8, Chloride 111 H, Carbon Dioxide 21 L, Anion Gap 13.8, BUN 6 L, Creatinine 0.40 L, Estimated Creat Clear 368 H, Estimated GFR 182, Est GFR ( Amer) 220, Glucose 80, Calcium 8.5, Total Bilirubin 0.6, AST 29, ALT 22, Alkaline Phosphatase 77, Troponin I < 0.01, NT-Pro-B Natriuret Pep 84.1, Total Protein 6.9, Albumin 4.2, Globulin 2.7, Albumin/Globulin Ratio 1.6, TSH 1.81, Thyroxine (T4) 11.0 01/19/25 15:07 01/19/25 15:07 Orders (Tests/Meds): ORDERS Category Date Time Status CBC w/Auto Diff [Complete Blood Count Auto Diff] Stat Lab 01/19/25 15:07 Completed CMP [Comprehensive Metabolic Panel] Stat Lab 01/19/25 15:07 Completed NT Pro Brain Natriuretic Pep. Stat Lab 01/19/25 15:07 Completed T4 (Thyroxine) Stat Lab 01/19/25 15:07 Completed TSH [Thyroid Stimulating Hormone] Stat Lab 01/19/25 15:07 Completed Trop I [Troponin I] Stat Lab 01/19/25 15:07 Completed UA [Urinalysis and Microscopic] Stat Lab 01/19/25 13:57 Completed Urine Culture Stat Micro 01/19/25 13:57 Received Medical Decision Narrative: In summary patient is a [age, sex] who presents to the emergency department for evaluation of [complaint]. Patient is [hemodynamically stable/unstable] upon arrival, [febrile/afebrile]. [Unremarkable physical exam, nonfocal exam versus focal remarkable exam]. Differential diagnosis includes [DDx]. Initial workup will be conducted with [hematologic labs, imaging, respiratory swab, describe workup]. Initial interventions include [crystalloid bolus, medications, p.o. challenge, etc.] initial workup reviewed by me [hematologic labs are remarkable for... Imaging remarkable for... Urinalysis remarkable for]. Upon repeat evaluation [patient had acceptable resolution of symptoms, had persistent pain for which additional interventions were conducted (describe interventions), tolerated p.o., was ambulatory, etc.]. Given this [patient is appropriate for discharge at this time and will be discharged with a prescription for... The case was discussed with hospital medicine regarding management and they will admit the patient their service for continued evaluation at this time... Etc.] Places where you can increase complexity: I informally interpreted the patient's chest x-ray or CT read and is remarkable for... Documenting what the air sampling and monitoring shows with rate and rhythm Consideration of test but deferring. Ex: I considered chest x-ray on this patient however given that they have no oxygen requirement and are clear to auscultation all lung tuttle will be deferred. Social determinants of health: Given that patient is undomiciled increases complexity. Given that patient has polysubstance abuse compounds all aspects of care <Rc Summers MD - Last Filed: 01/19/25 14:52> Medical Records Medical records reviewed: Yes I reviewed the patient's medical records. Edmar Inquiry Pt receiving controlled substance: No Edmar was queried for this patient: No Vital Signs: 01/19/25 14:00 01/19/25 14:30 01/19/25 16:46 Temperature 98.2 F 98.0 F Temperature Source Oral Oral Pulse Rate 88 90 Pulse Rate [Left Radial] 103 H Respiratory Rate 20 18 Blood Pressure 143/92 H 160/99 H Blood Pressure [Right Arm] 154/97 H Blood Pressure Mean [Right Arm] 116 Blood Pressure Source Automatic Cuff Blood Pressure Position Sitting 02 Sat by Pulse Oximetry 99 99 Oxygen Delivery Method Room Air Room Air Room Air Lab Data Lab Results 01/19/25 13:57: Urine Color Yellow, Urine Appearance Clear, Urine pH 6.0, Ur Specific [place] 1.020, Urine Protein Negative, Urine Glucose (UA) Negative, Urine Ketones Negative, Urine Blood Negative, Urine Nitrate Negative, Urine Bilirubin Negative, Urine Urobilinogen 0.2, Ur Leukocyte Esterase 1+ A, Urine RBC None, Urine WBC 3-5, Ur Squamous Epith Cells 5-10, Urine Bacteria Trace, Urine Mucus 1+ 01/19/25 15:07: WBC 7.2, RBC 4.09 L, Hgb 12.7, Hct 37.3, MCV 91.2, MCH 31.1, MCHC 34.0, RDW 11.5, Plt Count 235, MPV 10.4, Neut % (Auto) 61.5, Lymph % (Auto) 27.3, [place] % (Auto) 5.0, Eos % (Auto) 6.1, Baso % (Auto) 0.0 L, Neut # (Auto) 4.4, Lymph # (Auto) 2.0, [place] # (Auto) 0.4, Eos # (Auto) 0.4, Baso # (Auto) 0.0, Sodium 142, Potassium 3.8, Chloride 111 H, Carbon Dioxide 21 L, Anion Gap 13.8, BUN 6 L, Creatinine 0.40 L, Estimated Creat Clear 368 H, Estimated GFR 182, Est GFR ( Amer) 220, Glucose 80, Calcium 8.5, Total Bilirubin 0.6, AST 29, ALT 22, Alkaline Phosphatase 77, Troponin I < 0.01, NT-Pro-B Natriuret Pep 84.1, Total Protein 6.9, Albumin 4.2, Globulin 2.7, Albumin/Globulin Ratio 1.6, TSH 1.81, Thyroxine (T4) 11.0 Orders (Tests/Meds): ORDERS Category Date Time Status CBC w/Auto Diff [Complete Blood Count Auto Diff] Stat Lab 01/19/25 15:07 Completed CMP [Comprehensive Metabolic Panel] Stat Lab 01/19/25 15:07 Completed NT Pro Brain Natriuretic Pep. Stat Lab 01/19/25 15:07 Completed T4 (Thyroxine) Stat Lab 01/19/25 15:07 Completed TSH [Thyroid Stimulating Hormone] Stat Lab 01/19/25 15:07 Completed Trop I [Troponin I] Stat Lab 01/19/25 15:07 Completed UA [Urinalysis and Microscopic] Stat Lab 01/19/25 13:57 Completed Urine Culture Stat Micro 01/19/25 13:57 Received Medical Decision Narrative: 34-year-old female with history of obesity currently on phentermine by PCP for weight loss presenting with hypertension. She states that she has been in the 140s to 160s systolic. Most recent blood pressure prior to arrival to the emergency department in the 120s systolic. Denies any other symptoms. She states she has chronic back pain and has been having intermittent tingling in her hands and her feet as well as some back pain, but denies bowel or bladder dysfunction, unilateral deficits, strokelike symptoms otherwise, chest pain, nausea, vomiting, lightheadedness, syncope, or any other concerns. Patient states that she talked to her primary care provider who recommended coming to the emergency department for further evaluation. Patient states that she is currently asymptomatic, wants to know why her blood pressure is so high. Currently 140s systolic. Cardiopulmonary exam within normal limits, no lower extremity edema. Pulses equal symmetric temporal extremities. Patient ambulatory and neurologically intact. Differential includes iatrogenic hypertension in the setting of vasoactive substance for weight loss, primary hypertension, secondary hypertension, among others. Patient requesting labs because I am unable to view labs from primary care provider's office. These were obtained out of abundance of caution. On independent interpretation, urinalysis negative. EKG independently interpreted. Sinus rhythm 89 bpm with IN 179, QRS 93, QTc 398. Normal axis and no acute ischemic change.I imagine labs were all returned negative given very clinically well-appearing patient. However, prior to disposition and labs, care handed off to oncoming physician <Reynold Alvarado MD - Last Filed: 01/20/25 20:03> Vital Signs: 01/19/25 14:00 01/19/25 14:30 01/19/25 16:46 Temperature 98.2 F 98.0 F Temperature Source Oral Oral Pulse Rate 88 90 Pulse Rate [Left Radial] 103 H Respiratory Rate 20 18 Blood Pressure 143/92 H 160/99 H Blood Pressure [Right Arm] 154/97 H Blood Pressure Mean [Right Arm] 116 Blood Pressure Source Automatic Cuff Blood Pressure Position Sitting 02 Sat by Pulse Oximetry 99 99 Oxygen Delivery Method Room Air Room Air Room Air Lab Data Lab Results 01/19/25 13:57: Urine Color Yellow, Urine Appearance Clear, Urine pH 6.0, Ur Specific [place] 1.020, Urine Protein Negative, Urine Glucose (UA) Negative, Urine Ketones Negative, Urine Blood Negative, Urine Nitrate Negative, Urine Bilirubin Negative, Urine Urobilinogen 0.2, Ur Leukocyte Esterase 1+ A, Urine RBC None, Urine WBC 3-5, Ur Squamous Epith Cells 5-10, Urine Bacteria Trace, Urine Mucus 1+ 01/19/25 15:07: WBC 7.2, RBC 4.09 L, Hgb 12.7, Hct 37.3, MCV 91.2, MCH 31.1, MCHC 34.0, RDW 11.5, Plt Count 235, MPV 10.4, Neut % (Auto) 61.5, Lymph % (Auto) 27.3, [place] % (Auto) 5.0, Eos % (Auto) 6.1, Baso % (Auto) 0.0 L, Neut # (Auto) 4.4, Lymph # (Auto) 2.0, [place] # (Auto) 0.4, Eos # (Auto) 0.4, Baso # (Auto) 0.0, Sodium 142, Potassium 3.8, Chloride 111 H, Carbon Dioxide 21 L, Anion Gap 13.8, BUN 6 L, Creatinine 0.40 L, Estimated Creat Clear 368 H, Estimated GFR 182, Est GFR ( Amer) 220, Glucose 80, Calcium 8.5, Total Bilirubin 0.6, AST 29, ALT 22, Alkaline Phosphatase 77, Troponin I < 0.01, NT-Pro-B Natriuret Pep 84.1, Total Protein 6.9, Albumin 4.2, Globulin 2.7, Albumin/Globulin Ratio 1.6, TSH 1.81, Thyroxine (T4) 11.0 Orders (Tests/Meds): ORDERS Category Date Time Status CBC w/Auto Diff [Complete Blood Count Auto Diff] Stat Lab 01/19/25 15:07 Completed CMP [Comprehensive Metabolic Panel] Stat Lab 01/19/25 15:07 Completed NT Pro Brain Natriuretic Pep. Stat Lab 01/19/25 15:07 Completed T4 (Thyroxine) Stat Lab 01/19/25 15:07 Completed TSH [Thyroid Stimulating Hormone] Stat Lab 01/19/25 15:07 Completed Trop I [Troponin I] Stat Lab 01/19/25 15:07 Completed UA [Urinalysis and Microscopic] Stat Lab 01/19/25 13:57 Completed Urine Culture Stat Micro 01/19/25 13:57 Received Medical Decision Narrative: 34-year-old female with history of obesity currently on phentermine by PCP for weight loss presenting with hypertension. She states that she has been in the 140s to 160s systolic. Most recent blood pressure prior to arrival to the emergency department in the 120s systolic. Denies any other symptoms. She states she has chronic back pain and has been having intermittent tingling in her hands and her feet as well as some back pain, but denies bowel or bladder dysfunction, unilateral deficits, strokelike symptoms otherwise, chest pain, nausea, vomiting, lightheadedness, syncope, or any other concerns. Patient states that she talked to her primary care provider who recommended coming to the emergency department for further evaluation. Patient states that she is currently asymptomatic, wants to know why her blood pressure is so high. Currently 140s systolic. Cardiopulmonary exam within normal limits, no lower extremity edema. Pulses equal symmetric temporal extremities. Patient ambulatory and neurologically intact. Differential includes iatrogenic hypertension in the setting of vasoactive substance for weight loss, primary hypertension, secondary hypertension, among others. Patient requesting labs because I am unable to view labs from primary care provider's office. These were obtained out of abundance of caution. On independent interpretation, urinalysis negative. EKG independently interpreted. Sinus rhythm 89 bpm with IN 179, QRS 93, QTc 398. Normal axis and no acute ischemic change.I imagine labs were all returned negative given very clinically well-appearing patient. However, prior to disposition and labs, care handed off to oncoming physician Reynold Alvarado MD GABRIELLA: I assumed care of this patient from the previous emergency medicine physician. Laboratory analysis reveals no acute findings. Patient reports improvement of symptoms upon repeat evaluation, blood pressure within range that appears stable for discharge at this time. Patient will follow-up with PCP. Return precautions given. Critical Care <Rc Summers MD - Last Filed: 01/19/25 14:52> Critical Care Time Critical Care Time: No
[2025-01-19 14:00] VITALS: BP 154/97; PULSE 103; RESP 20; TEMP 36.8; O2SAT 99; BMI 38.7
[2025-01-19 14:00] LABS: Microscopic, Urine URINE MICROSCOPIC (MICROSCOPIC)
[2025-01-19 14:19] LABS: Appearance,Urine CLEAR (Clear); Bilirubin,Urine Negative (Negative); Blood, Urine Negative (Negative); Color,Urine YELLOW (Yellow); Glucose,Urine (UA) Negative (Negative); Ketones,Urine Negative (Negative); Leukocyte Esterase,Urine 1+ (Negative); Nitrate,Urine Negative (Negative); Protein,Urine Negative (Negative); Urobilinogen,Urine 0.2 EU/dl (0.2)
--- NOTE | 2025-01-19 14:29 | ECG_ITS ---
APPROVED REPORT Exam: Resting ECG HR:89 bpm ECG Measurements Heart Rate 89 AXES [place] 179 P 58 QRSd 93 QRS 72 QT 351 T 25 QTc 398 Conclusion SINUS RHYTHM NORMAL ECG UNCONFIRMED REPORT Electronically signed by : VAN ALVA, 01/21/2025 05:17:53
[2025-01-19 14:30] VITALS: BP 143/92; PULSE 88; O2SAT 99
[2025-01-19 14:53] LABS: Bacteria,Urine Trace /lpf; Mucus,Urine 1+ /lpf
[2025-01-19 15:12] LABS: Eosinophils # 0.4 K/mm3 (0.0-0.4); Eosinophils % 6.1 % (0.1-12.0); Hematocrit 37.3 % (37.0-47.0); Hemoglobin 12.7 g/dL (12.2-16.2); Lymphocytes % 27.3 % (10-50); Mean Corpuscular Hemoglobin 31.1 pg (27.0-31.2); Mean Corpuscular Volume 91.2 fl (81-99); Mean Platelet Volume 10.4 fl (7.4-10.4); Monocytes # 0.4 K/mm3 (0.1-1.0); Neutrophils # 4.4 K/mm3 (1.8-7.8); Neutrophils % 61.5 % (37.0-80.0); Platelet Count 235 K/mm3 (142-424); Red Blood Count 4.09 M/mm3 (4.20-5.40); Red Cell Distribution Width 11.5 % (11.5-17.5); White Blood Count 7.2 K/mm3 (4.8-10.8)
[2025-01-19 15:26] LABS: Albumin Level 4.2 g/dl (3.5-5.0); Chloride 111 mmol/L (98-107)
[2025-01-19 15:27] LABS: Potassium 3.8 mmoL/L (3.5-5.1); Sodium 142 mmol/L (136-145)
[2025-01-19 15:29] LABS: Alanine Aminotransferase 22 U/L (12-78); Alkaline Phosphatase 77 U/L (38-126); Anion Gap 13.8 mEq/L (5-15); Aspartate Amino Transferase 29 U/L (14-36); Bilirubin,Total 0.6 mg/dl (0.2-1.3); Blood Urea Nitrogen 6 mg/dl (7-17); Carbon Dioxide 21 mmol/L (22.0-30.0); Creatinine Clearance Estimated 368 mL/min (50-200); Estimated Glomerular Filt Rate 182 ml/min (>60); GFR (African American) 220 ML/MIN (>60)
[2025-01-19 15:30] LABS: Albumin/Globulin Ratio 1.6 (1.1-1.8); Calcium 8.5 mg/dl (8.4-10.2); Globulin 2.7 g/dL (1.3-3.2); Glucose 80 mg/dl (74-100); Total Protein,Serum 6.9 g/dl (6.3-8.2)
[2025-01-19 15:53] LABS: Troponin I < 0.01 ng/ml (0.00-0.034)
[2025-01-19 15:59] LABS: NT Pro Brain Natriuretic Pep. 84.1 pg/mL (0-125)
[2025-01-19 16:01] LABS: Thyroid Stimulating Hormone 1.81 uIU/mL (0.465-4.68)
[2025-01-19 16:46] VITALS: BP 160/99; PULSE 90; RESP 18; TEMP 36.7; O2SAT 99
== END 2025-01-19 16:46 | disposition home or self-care (01) ==
PROVIDERS: Emergency Medicine; Emergency Provider Emergency Medicine; PCP Nurse Practitioner Family
DX: I10 Essential (primary) hypertension (principal)
CPT/HCPCS: 80053; 81001; 83880; 84436; 84443; 84484; 85025; 87086; 93005; 99283

== ENCOUNTER 2025-05-07 13:03 | Outpatient (CLI) | payer OTHER, SELFPAY ==
--- NOTE | 2025-05-07 13:05 | XR_ITS ---
FINAL REPORT CLINICAL HISTORY: Chest pain states cp, documentation coordinator wanted eval heart; family hx of heart issues FINDINGS: No acute pulmonary density is evident. There is no evidence of effusion or other pleural disease. The mediastinum has a normal appearance. The cardiac silhouette is unremarkable. IMPRESSION: Unremarkable chest exam. Reviewed, Interpreted and Dictated by Pankaj Ramírez MD Transcribed by Madhuri Tidwell Authenticated and [facility]
--- OUTSIDE RECORDS SUMMARY | 2025-05-07 13:05 | XMS_ITS | Data Portability ---
Author Organization [facility] Address [address] [place] [address] Care Team Providers Care Air Launch Weapons Technician Name Role Phone CHAYA TEIXEIRA Primary Care Provider Unavailabl e Assessment Encounter Date Assessment Date Assessment LastModified by Organization Details LastModified Time 01/22/2025 01/22/2025 Risks, benefits, and alternatives of the medication have been discussed with the patient. She would like to move forward with a prescription of wellbuterin. [email or web address] Not available 01/22/2025 11:30:42 Plan of Treatment Reminders Order Date Submit Date Provider Last Modified By Organization Details Last Modified Time Details Appointments Establish ed Patient 20 2024 11:20A M Chaya Teixeira APRN Not available Not available Not available Lab magnesium , serum or plasma 2024 025 DILIA [facility], [address], [address] [address], [place], [address], 01/19/2025 15:07:34 cobalamin and folate panel, serum 2024 025 DILIA [facility], [address], [place] [address], [place], [address], 01/19/2025 15:07:33 iron + total iron-bind ing capacity (TIBC), serum 2024 025 DILIA [facility], [address], [address], [place], [address], 01/19/2025 15:07:32 vitamin D, 25-hydrox y, total, serum 2024 025 DILIA [facility], [address], [place] [address], [place], [address], 01/19/2025 15:07:33 CMP, serum or plasma 2024 025 DILIA [facility], [address], [place] [address], [place], [address], 01/19/2025 15:07:32 CBC w/ auto diff 2024 025 DILIA [facility], [address], [place], [place], [address], 01/19/2025 15:07:31 TSH + free T4, serum 2024 025 DILIA [facility], [address], [place] [address], [place], [address], 01/19/2025 15:07:30 HbA1c (hemoglob in A1c), blood 2024 025 DILIA [facility], [address], [place] [address], [place], [address], 01/19/2025 15:07:33 drug screen, urine 2024 025 [facility], [address] [facility], [place], [address], 12/25/2024 13:40:34 Referral cardiolog ist referral 2024 025 [facility], [address] [place] [address] [address], [place], [address], 05/07/2025 11:46:45 Procedures None recorded. Surgeries None recorded. Imaging holter monitor - 48hour 2024 025 [email or web address] [facility] Scheduling Department -New Scheduling Process, [address] [facility] [address], [place], [address], 05/07/2025 11:34:56 Medication Orders bupropion HCl 75 mg tablet 2024 025 [facility], [address] [place] [address], [id number], 01/25/2025 17:06:18 Adipex-P 37.5 mg tablet 2024 025 [facility], [address] [place] [address], [id number], 01/22/2025 11:39:51 Topamax 50 mg tablet 2023 024 [facility], [address] [place] [address], [id number], 12/25/2024 12:03:42 buspirone 5 mg tablet 2023 024 [facility], [address] [place] [address], [id number], 05/07/2025 11:09:30 Patient TargetsNo targets recorded. Patient Instructions Encounter Date Encounter Id Patient Instructions Last Modified By Organization Details Last Modified Time 01/22/2025 [id number] Treament Plan: Patient will start medication as directed. Patient will continue exercise, watch calorie intake, and follow up for weight check in 1 month. 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 Referral for Ch est pain Referring Physician: Chaya Teixeira, Family Medicine, Encounter Date: 05/07/2025 Results Created Date Observation Date Name Description Value Unit Range Abnormal Flag Note LastModifiedBy Organization Detail LastModifiedTime 12/26/1912/25/2024 drug scree n, urine THC negati ve Not Available [address], [place], [address], 12/25/2024 11:51:15 12/26/1912 0112/25/2024 drug scree n, urine TCA negati ve Not Available [address], [address], 12/25/2024 11:51:15 12/26/19 25 12/25/2024 drug scree n, urine BAR negati ve Not Available [address], [address], 12/25/2024 11:51:15 12/26/19 25 12/25/2024 drug scree n, urine BZO negati ve Not Available [address], [address], 12/25/2024 11:51:15 12/26/19 25 12/25/2024 drug scree n, urine MTD negati ve Not Available [address], [address], 12/25/2024 11:51:15 12/26/19 25 12/25/2024 drug scree n, urine AMP negati ve Not Available [address], [address], 12/25/2024 11:51:15 12/26/19 25 12/25/2024 drug scree n, urine MOP negati ve Not Available [address], [address], 12/25/2024 11:51:15 12/26/19 25 12/25/2024 drug scree n, urine OXY negati ve Not Available [address], [address], 12/25/2024 11:51:15 12/26/19 25 12/25/2024 drug scree n, urine MDMA negati ve Not Available [address], [address], 12/25/2024 11:51:15 12/26/19 25 12/25/2024 drug scree n, urine SUHAS negati ve Not Available [address], [address], 12/25/2024 11:51:15 12/26/19 25 12/25/2024 drug scree n, urine PCP negati ve Not Available [address], [address], 12/25/2024 11:51:15 12/26/19 25 12/25/2024 drug scree n, urine MET negati ve Not Available [address], [address], 12/25/2024 11:51:15 01/19/20 25 01/19/2025 TSH+F REE T4 TSH 1.630 uIU/m L 0.450- 4.500 normal Not Available [facility] ([facility]) [address] [facility], [place], [address], 01/19/2025 15:07:30 01/19/20 25 01/19/2025 TSH+F REE T4 T4,free(dire ct) 1.17 NG/dL 0.82-1 .77 normal Not Available [facility] ([facility]) [address] [facility], [place], [address], 01/19/2025 15:07:30 01/19/20 25 01/19/2025 CBC WITH DIFFE RENTI AL/PL ATELE T WBC COMMEN T x10e3 /uL Test not perfo rmed. Whole blood speci men parti ally or compl etely clott ed. A commo n cause is insuf ficie nt mixin g upon colle ction . Not Available [facility] ([facility]) [address] [facility], [place], [address], 01/19/2025 15:07:31 01/19/20 25 01/19/2025 CBC WITH DIFFE RENTI AL/PL ATELE T RBC TNP Test not perfo rmed Not Available [facility] ([facility]) [address] [facility], [place], [address], 01/19/2025 15:07:31 01/19/20 25 01/19/2025 CBC WITH DIFFE RENTI AL/PL ATELE T hemoglobin TNP Test not perfo rmed Not Available [facility] ([facility]) [address] [facility], [place], [address], 01/19/2025 15:07:31 01/19/20 25 01/19/2025 CBC WITH DIFFE RENTI AL/PL ATELE T hematocrit TNP Test not perfo rmed Not Available [facility] ([facility]) [address] [facility], [place], [address], 01/19/2025 15:07:31 01/19/20 25 01/19/2025 CBC WITH DIFFE RENTI AL/PL ATELE T MCV HEMODIALYSIS RN Not Available [facility] ([facility]) [address] [facility], [place], [address], 01/19/2025 15:07:31 01/19/20 25 01/19/2025 CBC WITH DIFFE RENTI AL/PL ATELE T MCH HEMODIALYSIS RN Not Available [facility] ([facility]) [address] [facility], [place], [address], 01/19/2025 15:07:31 01/19/20 25 01/19/2025 CBC WITH DIFFE RENTI AL/PL ATELE T MCHC HEMODIALYSIS RN Not Available [facility] ([facility]) [address] [facility], [place], [address], 01/19/2025 15:07:31 01/19/20 25 01/19/2025 CBC WITH DIFFE RENTI AL/PL ATELE T RDW HEMODIALYSIS RN Not Available [facility] ([facility]) [address] [facility], [place], [address], 01/19/2025 15:07:31 01/19/20 25 01/19/2025 CBC WITH DIFFE RENTI AL/PL ATELE T platelets TNP Test not perfo rmed Not Available [facility] ([facility]) [address] [facility], [place], [address], 01/19/2025 15:07:31 01/19/20 25 01/19/2025 CBC WITH DIFFE RENTI AL/PL ATELE T neutrophils TNP Test not perfo rmed Not Available [facility] ([facility]) [address] [facility], [place], [address], 01/19/2025 15:07:31 01/19/20 25 01/19/2025 CBC WITH DIFFE RENTI AL/PL ATELE T lymphs TNP Test not perfo rmed Not Available [facility] ([facility]) [address] [facility], [place], [address], 01/19/2025 15:07:31 01/19/20 25 01/19/2025 CBC WITH DIFFE RENTI AL/PL ATELE T monocytes TNP Test not perfo rmed Not Available [facility] ([facility]) [address] [place], [address], 01/19/2025 15:07:31 01/19/20 25 01/19/2025 CBC WITH DIFFE RENTI AL/PL ATELE T eos TNP Test not perfo rmed Not Available [facility] ([facility]) [address] [facility], [place], [address], 01/19/2025 15:07:31 01/19/20 25 01/19/2025 CBC WITH DIFFE RENTI AL/PL ATELE T basos HEMODIALYSIS RN Not Available [facility] ([facility]) [address] [place], [address], 01/19/2025 15:07:31 01/19/20 25 01/19/2025 CBC WITH DIFFE RENTI AL/PL ATELE T immature cells HEMODIALYSIS RN Not Available [facility] ([facility]) [address] [place], [address], 01/19/2025 15:07:31 01/19/20 25 01/19/2025 CBC WITH DIFFE RENTI AL/PL ATELE T neutrophils (absolute) HEMODIALYSIS RN Not Available [facility] ([facility]) [address] [place], [address], 01/19/2025 15:07:31 01/19/20 25 01/19/2025 CBC WITH DIFFE RENTI AL/PL ATELE T lymphs (absolute) TNP Test not perfo rmed Not Available [facility] ([facility]) [address] [place], [address], 01/19/2025 15:07:31 01/19/20 25 01/19/2025 CBC WITH DIFFE RENTI AL/PL ATELE T monocytes(ab solute) HEMODIALYSIS RN Not Available [facility] ([facility]) [address] [place], [address], 01/19/2025 15:07:31 01/19/20 25 01/19/2025 CBC WITH DIFFE RENTI AL/PL ATELE T eos (absolute) TNP Test not perfo rmed Not Available [facility] ([facility]) [address] [place], [address], 01/19/2025 15:07:31 01/19/20 25 01/19/2025 CBC WITH DIFFE RENTI AL/PL ATELE T baso (absolute) TNP Test not perfo rmed Not Available [facility] ([facility]) [address] [place], [address], 01/19/2025 15:07:31 01/19/20 25 01/19/2025 CBC WITH DIFFE RENTI AL/PL ATELE T immature granulocytes HEMODIALYSIS RN Not Available [facility] ([facility]) [address] [facility], [place], [address], 01/19/2025 15:07:31 01/19/20 25 01/19/2025 CBC WITH DIFFE RENTI AL/PL ATELE T immature grans (abs) HEMODIALYSIS RN Not Available [facility] ([facility]) [address] [facility], [place], [address], 01/19/2025 15:07:31 01/19/20 25 01/19/2025 CBC WITH DIFFE RENTI AL/PL ATELE T NRBC HEMODIALYSIS RN Not Available [facility] ([facility]) [address] [facility], [place], [address], 01/19/2025 15:07:31 01/19/20 25 01/19/2025 CBC WITH DIFFE RENTI AL/PL ATELE T hematology comments: HEMODIALYSIS RN Not Available [facility] ([facility]) [address] [facility], [place], [address], 01/19/2025 15:07:31 01/19/20 25 01/19/2025 COMP. METAB OLIC PANEL (14) glucose 87 mg/dL 70-99 normal Not Available [facility] ([facility]) [address] [facility], [place], [address], 01/19/2025 15:07:31 01/19/20 25 01/19/2025 COMP. METAB OLIC PANEL (14) BUN 5 mg/dL 6-20 below low normal Not Available [facility] ([facility]) [address] [facility], [place], [address], 01/19/2025 15:07:31 01/19/20 25 01/19/2025 COMP. METAB OLIC PANEL (14) creatinine 0.58 mg/dL 0.57-1 .00 normal Not Available [facility] ([facility]) [address], [place], [address], 01/19/2025 15:07:31 01/19/20 25 01/19/2025 COMP. METAB OLIC PANEL (14) eGFR 121 mL/mi n/1.7 3 >59 normal Not Available [facility] ([facility]) [address] [place], [address], 01/19/2025 15:07:31 01/19/20 25 01/19/2025 COMP. METAB OLIC PANEL (14) BUN/creatini ne ratio 9 9-23 normal Not Available [facility] ([facility]) [address], [place], [address], 01/19/2025 15:07:31 01/19/20 25 01/19/2025 COMP. METAB OLIC PANEL (14) sodium 137 mmol/ L 134-14 4 normal Not Available [facility] ([facility]) [address] [place], [address], 01/19/2025 15:07:31 01/19/20 25 01/19/2025 COMP. METAB OLIC PANEL (14) potassium 4.2 mmol/ L 3.5-5. 2 normal Not Available [facility] ([place] [facility]) [address] [place], [address], 01/19/2025 15:07:31 01/19/20 25 01/19/2025 COMP. METAB OLIC PANEL (14) chloride 101 mmol/ L 96-106 normal Not Available [facility] ([place] [facility]) [address] [place], [address], 01/19/2025 15:07:31 01/19/20 25 01/19/2025 COMP. METAB OLIC PANEL (14) carbon dioxide, total 20 mmol/ L 20-29 normal Not Available [facility] ([place] [facility]) [address] [place], [address], 01/19/2025 15:07:31 01/19/20 25 01/19/2025 COMP. METAB OLIC PANEL (14) calcium 9.2 mg/dL 8.7-10 .2 normal Not Available [facility] ([facility]) [address] [place], [address], 01/19/2025 15:07:31 01/19/20 25 01/19/2025 COMP. METAB OLIC PANEL (14) protein, total 7.1 g/dL 6.0-8. 5 normal Not Available [facility] ([facility]) [address] [place], [address], 01/19/2025 15:07:31 01/19/20 25 01/19/2025 COMP. METAB OLIC PANEL (14) albumin 4.5 g/dL 3.9-4. 9 normal Not Available [facility] ([facility]) [address] [place], [address], 01/19/2025 15:07:31 01/19/20 25 01/19/2025 COMP. METAB OLIC PANEL (14) globulin, total 2.6 g/dL 1.5-4. 5 Not Available [facility] ([facility]) [address] [place], [address], 01/19/2025 15:07:31 01/19/20 25 01/19/2025 COMP. METAB OLIC PANEL (14) bilirubin, total 0.3 mg/dL 0.0-1. 2 normal Not Available [facility] ([facility]) [address] [place], [address], 01/19/2025 15:07:31 01/19/20 25 01/19/2025 COMP. METAB OLIC PANEL (14) alkaline phosphatase 91 IU/L 44-121 normal Not Available [facility] ([facility]) [address] [place], [address], 01/19/2025 15:07:31 01/19/20 25 01/19/2025 COMP. METAB OLIC PANEL (14) AST (SGOT) 17 IU/L 0-40 normal Not Available [facility] ([facility]) [address] [place], [address], 01/19/2025 15:07:31 01/19/20 25 01/19/2025 COMP. METAB OLIC PANEL (14) ALT (SGPT) 18 IU/L 0-32 normal Not Available [facility] ([facility]) [address] [place], [address], 01/19/2025 15:07:31 01/19/20 25 01/19/2025 IRON AND TIBC iron bind.cap.(TI BC) 284 ug/dL 250-45 0 normal Not Available [facility] ([facility]) [address] [place], [address], 01/19/2025 15:07:32 01/19/20 25 01/19/2025 IRON AND TIBC UIBC 217 ug/dL 131-42 5 normal Not Available [facility] ([facility]) [address] [place], [address], 01/19/2025 15:07:32 01/19/20 25 01/19/2025 IRON AND TIBC iron 67 ug/dL 27-159 normal Not Available [facility] ([facility]) [address] [place], [address], 01/19/2025 15:07:32 01/19/20 25 01/19/2025 IRON AND TIBC iron saturation 24 % 15-55 normal Not Available [facility] ([facility]) [address] [place], [address], 01/19/2025 15:07:32 01/19/20 25 01/19/2025 VITAM IN B12 AND FOLAT E vitamin B12 603 pg/mL 232-12 45 normal Not Available [facility] ([facility]) [address] [facility], [place], [address], 01/19/2025 15:07:33 01/19/20 25 01/19/2025 VITAM IN B12 AND FOLAT E folate (folic acid), serum >20.0 NG/mL >3.0 A serum folat e primo ntrat ion of less than 3.1 ng/mL is consi dered to repre sent clini belinda defic iency . Not Available [facility] ([facility]) [address] [facility], [place], [address], 01/19/2025 15:07:33 01/19/20 25 01/19/2025 HEMOG LOBIN A1C hemoglobin A1C COMMEN T % Test not perfo rmed. Whole blood speci men parti ally or compl etely clott ed. A commo n cause is insuf ficie nt mixin g upon colle ction . Predi abete s: 5.7 - 6.4 Diabe corinne: >6.4 Glyce henrique contr ol for adult s with diabe corinne: <7.0 Not Available [facility] ([facility]) [address] [facility], [place], [address], 01/19/2025 15:07:33 01/19/20 25 01/19/2025 VITAM IN D, 25-HY DROXY vitamin D, 25-hydroxy 23.0 NG/mL 30.0-1 00.0 below low normal Vitam in D defic iency has been defin ed by the Insti tute of Medic ine and an Endoc rine Socie ty pract ice guide line as a level of serum 25-OH vitam in D less than 20 ng/mL (1,2) . The Endoc rine Socie ty went on to furth er defin e vitam in D insuf ficie ncy as a level betwe en 21 and 29 ng/mL (2). 1. IOM (Inst itute of Medic ine). 2010. Dieta ry refer ence dahlia es for calci um and D. Paul angulo [place]: The Natio nal [facility] Press . 2. Bijan drake [place], Ernesto ey [place], Bisch off-F errar i [place], et al. Evalu ation , treat ment, and preve ntion of vitam in D defic iency : an Endoc rine Socie ty clini belinda pract ice guide line. JCEM. 2010; 96(7) :1911 -30. Not Available [facility] ([facility]) [address] [place], [address], 01/19/2025 15:07:33 01/19/20 25 01/19/2025 MAGNE SIUM magnesium 2.1 mg/dL 1.6-2. 3 normal Not Available [facility] ([facility]) [address] [facility], [place], [address], 01/19/2025 15:07:34 01/19/20 25 01/19/2025 SPECI MEN STATU S REPOR T specimen status report COMMEN T Test not perfo rmed. Whole blood speci men parti ally or compl etely clott ed. A commo n cause is insuf ficie nt mixin g upon colle ction . TEST: 05104 9 CBC With Diffe renti al/Pl atele t Not Available [facility] ([facility]) [address] [place], [address], 01/19/2025 15:07:35 01/19/20 25 01/19/[address] PROBL EM request problem COMMEN T Test not perfo rmed. Whole blood speci men parti ally or compl etely clott ed. A commo n cause is insuf ficie nt mixin g upon colle ction . TEST: 04770 3 Hemog lobin A1c Not Available [facility] ([facility]) [address] [place], [address], 01/19/2025 15:07:35 01/23/20 25 01/19/2025 elect rocar diogr am No observ ation record ed. bstears [facility] [address], [place], [address], 01/22/2025 09:48:59 Result Notes None recorded. Problems Name Problem SNOMED Code Status Onset Date Resolution Date Notes Provider Name and Address Organization Details Recorded Time History of depression 176512695 Active 2017 Chaya Teixeira, [employer] [address], [place], [address], [place] - [facility] 14:38:03 Anxiety 87034042 Active 2017 Chaya Teixeira, [employer] [address], [place], [address], [place] - [facility] 14:38:06 Obesity 945831252 Active 2021 Chaya Teixeira APRN [address], [place], [address], [place] - [facility] 14:37:56 Depressive disorder 49546302 Active 2022 Chaya Teixeira APRN [address], [place], [address], [place] - [facility] 3 09:11:35 Migraine 94171839 Active 2023 Chaya Teixeira APRN [address], [place], [address], [place] - [facility] 4 10:28:57 Benign hypertension 76423544 Active 2024 Chaya Teixeira APRN [address], [place], [address], [place] - [facility] 5 11:20:15 Problem Notes None recorded. Procedures Surgical History Date Name Laterality Status Provider Name and Address Organization Details Recorded Time 07/01/20 23 Cerumen Removal completed Chaya Teixeira APRN [address], [place], [address], [place] - [facility] 07/01/2023 15:14:48 08/15/20 17 Caesarean Section completed Stephanie Manning [place] - [facility] 11/25/2017 13:18:47 Tonsillectomy completed Marilyn Babcock [place] - [facility] 05/04/2022 14:29:09 Cholecystectomy, laparoscopic completed Stephanie GARC[place] - [facility] 11/25/2017 13:18:31 Imaging Results None recorded. Procedure Notes None recorded. Medical Equipment None Reported. Allergies No known drug allergies Medications Name Sig Start Date Stop Date Status Note LastModified by Organization Details LastModified Time cyclobenz aprine 10 mg tablet 05/04 completed Not Available Not Available Not Available buspirone 5 mg tablet Take 1 tablet twice a day by oral route as needed for 30 days, for anxiety. 05/07 completed Not Available Not Available Not Available bupropion HCl SR 150 mg tablet,12 hr sustained -release Take 1 tablet twice a day by oral route for 30 days. completed Not Available Not Available Not Available neomycin- polymyxin -hydrocor t 3.5 mg/mL-10, 000 unit/mL-1 % ear solution 07/22 completed Not Available Not Available Not Available nystatin 100,000 unit/mL oral suspensio n Take 5 mL 4 times a day by oral route for 7 days. 10/01 completed Not Available Not Available Not Available labetalol 200 mg tablet 11/25 completed Not Available Not Available Not Available azithromy héctor 250 mg tablet TAKE 2 TABLETS (500 MG) BY ORAL ROUTE ONCE DAILY FOR 1 DAY THEN 1 TABLET (250 MG) BY ORAL ROUTE ONCE DAILY FOR 4 DAYS 06/04 completed Not Available Not Available Not Available ibuprofen 800 mg tablet TAKE 1 TABLET BY MOUTH EVERY 8 HOURS NEEDED FOR MODERATE PAIN 10/01 completed Not Available Not Available Not Available prednison e 20 mg tablet Take 1 tablet twice a day by oral route for 5 days. 09/01 completed Not Available Not Available Not Available terconazo le 0.8 % vaginal cream 11/25 completed Not Available Not Available Not Available penicilli n V potassium 500 mg tablet 09/10 completed Not Available Not Available Not Available topiramat e 25 mg tablet Take 1 tablet every day by oral route at bedtime. 10/01 completed Not Available Not Available Not Available phentermi ne 37.5 mg tablet Take 1 tablet every day by oral route for 30 days. 01/22 completed Not Available Not Available Not Available ketorolac 30 mg/mL (1 mL) injection solution Inject 15 mg every day by intramus cular route. 05/25 completed Not Available Not Available Not Available bupropion HCl SR 100 mg tablet,12 hr sustained -release Take 1 tablet twice a day by oral route for 21 days. 07/22 completed Not Available Not Available Not Available oxycodone -acetamin ophen 5 mg-325 mg tablet 11/25 completed Not Available Not Available Not Available benzonata te 100 mg capsule TAKE 1 CAPSULE BY MOUTH THREE TIMES DAILY NEEDED FOR COUGH 09/06 completed Not Available Not Available Not Available Prozac 20 mg capsule take 1 capsule (20 mg) by oral route once daily for 30 days 05/04 completed Not Available Not Available Not Available ferrous sulfate 325 mg (65 mg iron) tablet 11/25 completed Not Available Not Available Not Available bupropion HCl 75 mg tablet TAKE 1 TABLET BY MOUTH TWICE DAILY active Not Available Not Available No t Available ergocalci ferol (vitamin D2) 1,250 mcg (50,000 unit) capsule TAKE 1 CAPSULE BY MOUTH ONCE WEEKLY active Not Available Not Available No t Available dexametha sone sodium phosphate 4 mg/mL injection solution Inject 1 mL every day by intramus cular route. 05/25 completed Not Available Not Available Not Available methylpre dnisolone 4 mg tablets in a dose pack 05/04 completed Not Available Not Available Not Available albuterol sulfate HFA 90 mcg/actua tion aerosol inhaler Inhale 1 puff every 4 hours by inhalati on route. active Not Available Not Available No t Available brompheni ramine-ps eudoephed rine-DM 2 mg-30 mg-10 mg/5 mL oral syrup TAKE 5 ML BY MOUTH EVERY 6 HOURS NEEDED FOR COUGH 09/06 completed Not Available Not Available Not Available fluticaso ne propionat e 50 mcg/actua tion nasal spray,brennan pension [place] 1 spray every day by intranas al route. 06/04 completed Not Available Not Available Not Available naproxen 500 mg tablet 11/25 completed Not Available Not Available Not Available Bactroban Nasal 2 % ointment apply one-half of the ointment from the tube into one nostril and the other half into the other nostril by topical route 2 times per day in the morning and evening for 5 days 09/10 completed Bactroba n Nasal 2 % nasal ointment ;Recorde d Status: Recorded on: 09/05/20 15 1:31PM;U ser: gored;Sherley Lozano on: 09/10/20 15 Not Available Not Available Not Available neomycin- polymyxin -hydrocor t 3.5 mg-10,000 unit/mL-1 % ear drops,brennan p INSTILL 4 DROPS INTO AFFECTED EAR(S) BY OTIC ROUTE 3 TIMES PER DAY 07/22 completed Not Available Not Available Not Available Bactrim DS 800 mg-160 mg tablet take 1 tablet by oral route 2 times per day for 14 days 09/19 completed Bactrim DS 800-160 mg oral tablet;P rescribe Status: Prescrib ed on: 09/05/20 15 1:37PM;U ser: gored;Sherley Womacki on: 09/19/20 15;Pharm acyVerif ied: 09/05/20 15 1:37PM Not Available Not Available Not Available topiramat e 50 mg tablet Take 1 tablet twice a day by oral route for 30 days, for headache s. 12/25 completed Not Available Not Available Not Available Adipex-P one po qd for weight control 09/05 completed adipex 37.5;Rec orded Status: Recorded on: 02/24/20 15 10:15AM; Disconti nued Status: Disconti nued on: 09/05/20 12:57PM; User: Zane Lozano on: 03/25/20 15;Indic ation: - (-5) Not Available Not Available Not Available Chantix Starting Month Box 0.5 mg (11)-1 mg (42) tablets in dose pack 11/25 completed Not Available Not Available Not Available Vitals Date Recorded Body height Body mass index (BMI) Body weight Body temperature Heart rate Oxygen saturation Oxygen saturation in Arterial blood by Pulse oximetry Respiratory rate Systolic And Diastolic Provider Name and Address Organization Details Last Updated DateTime 5 170.18 cm 42.5 kg/m2 935213. 33 g 97.7 [degF] 84 /min 98 % 98 % 18 /min 122/77.99 mm[Hg] Gloria Chu [place] - [facility] 5 11:10:57 Date Recorded Body height Respiratory rate Body mass index (BMI) Body weight Heart rate Oxygen saturation Oxygen saturation in Arterial blood by Pulse oximetry Systolic And Diastolic Provider Name and Address Organization Details Last Updated DateTime 5 170.18 cm 18 /min 41.3 kg/m2 420555. 39 g 82 /min 99 % 99 % 156/94 mm[Hg] Marilyn Chowdhuryrachael [place] - [facility] 5 15:27:21 Date Recorded Body height Respiratory rate Body mass index (BMI) Body weight Body temperature Heart rate Oxygen saturation Oxygen saturation in Arterial blood by Pulse oximetry Systolic And Diastolic Provider Name and Address Organization Details Last Updated DateTime 5 170.18 cm 18 /min 41.5 kg/m2 195763. 98 g 98 [degF] 84 /min 98 % 98 % 134/86 mm[Hg] Marilynshree Chowduhryrachael [place] - [facility] 5 11:19:32 Date Recorded Body height Respiratory rate Body mass index (BMI) Body weight Heart rate Oxygen saturation Oxygen saturation in Arterial blood by Pulse oximetry Body temperature Systolic And Diastolic Provider Name and Address Organization Details Last Updated DateTime 5 170.18 cm 18 /min 42.1 kg/m2 607689. 35 g 96 /min 97 % 97 % 98 [degF] 168/90 mm[Hg] Marilyn Chowdhuryrachael [place] - [facility] 5 11:02:19 Date Recorded Body height Body mass index (BMI) Body weight Heart rate Oxygen saturation Oxygen saturation in Arterial blood by Pulse oximetry Respiratory rate Systolic And Diastolic Provider Name and Address Organization Details Last Updated DateTime 4 170.18 cm 41.3 kg/m2 178278. 39 g 87 /min 98 % 98 % 18 /min 128/82 mm[Hg] Gloria Chu [place] - [facility] 4 15:27:31 Social History Question Answer Notes LastModified by Organizat ion Details LastModified Time Tobacco Smoking Status Current Every Day Smoker Stephanie eugene [place] - [facility] 11/25/2017 13:17:51 Do You Have An Advance Directive? No Information n ot available 05/04/2022 How Many Years Have You Consumed Alcohol? 20 Information not available 09/10/2024 Are You Blind Or Do You Have Difficulty Seeing? No Information n ot available 05/04/2022 What Is Your Level Of Caffeine Consumption? Moderate Information not available 09/10/2024 In The 14 Days Before Symptom Onset, Have You Had Close Contact With A Laboratory-confirm ed COVID-19 While That Case Was Ill? No Information n ot available 06/04/2023 In The 14 Days Before Symptom Onset, Have You Had Close Contact With A Person Who Is Under Investigation For COVID-19 While That Person Was Ill? No Information not available 06/04/2023 Have You Been To An Area Known To Be High Risk For COVID-19? No Information not available 06/04/2023 Are You Deaf Or Do You Have Serious Difficulty Hearing? No Information not available 05/04/2022 What Type Of Diet Are You Following? REGULAR [email or web address] Information n ot available 11/25/2017 Have You Processed Blood Or Body Fluids From An Ebola Virus Disease Patient Without Appropriate PPE? No Information not available 06/04/2023 Do You Reside In Or Have You Traveled To An Area Where Ebola Virus Transmission Is Active? No Information not available 06/04/2023 What Is The Highest Grade Or Level Of School You Have Completed Or The Highest Degree You Have Received? [id number] Information not available 05/04/2022 Have There Been Any Changes To Your Family Or Social Situation? No Information no t available 05/04/2022 What Is The Fluoride Status Of Your Home? Unknown Information not available 05/04/2022 Hard Of Hearing Or Deaf In One Or Both Ears? No [email or web address] Information not available 11/25/2017 Have You Recently Or Are You Planning To Travel To An Area With Zika Virus? No Information not available 06/04/2023 Legally Blind In One Or Both Eyes? No [email or web address] Information no t available 11/25/2017 Live Alone Or With Others? With Others [email or web address] Information not available 11/25/2017 Do You Have A Medical Power Of Greaser Helper? No Information not available 05/04/2022 What Was The Date Of Your Most Recent Tobacco Screening? 09/10/2024 Information not available 09/10/2024 How Many Children Do You Have? 1 Information not available 05/04/2022 What Is Your Current Pack Years? [email or web address] Information not available 01/18/2025 Do You Use Protection Against STDs? No Information not available 09/10/2024 What Is Your Relationship Status? Single [email or web address] Information not available 11/25/2017 Do You Use Your Seat Belt Or Car Seat Routinely? Yes Information not available 09/10/2024 Are You Sexually Active? Yes Information not available 09/10/2024 Do You Have Smoke And Carbon Monoxide Detectors In Your Home? No Information not available 05/04/2022 At What Age Did You Start Smoking Tobacco? 15 Information not available 05/04/2022 Are You Passively Exposed To Smoke? Yes Information no t available 05/04/2022 How Much Tobacco Do You Smoke? 2 PPD Information not available 09/10/2024 Do You Use Sunscreen Routinely? No Information not available 09/10/2024 Has Tobacco Cessation Counseling Been Provided? Yes Information not available 06/04/2023 On What Date Was Tobacco Cessation Counseling Provided? 09/10/2024 Information not available 09/10/2024 How Many Years Have You Smoked Tobacco? 19 Information not available 01/18/2025 Do You Have Difficulty Walking Or Climbing Stairs? No Information not available 05/04/2022 Sex: Female Functional Status Question Answer Note LastModified by Organizat ion Details LastModified Time Do you use any illicit or recreational drugs? No Information not available 05/04/2022 Do you or have you ever used any other forms of tobacco or nicotine? No Information not available 05/04/2022 What is your level of alcohol consumption? Occasional Information not available 09/10/2024 Are you currently employed? No [email or web address] Information not available 11/25/2017 Do you have transportation difficulties? No Information not available 05/04/2022 Are you able to walk? [email or web address] Information not available 05/04/2022 Do you have difficulty doing errands alone? No Information not available 05/04/2022 Are you able to care for yourself? Yes [email or web address] Information n ot available 11/25/2017 Do you have difficulty dressing or bathing? No Information not available 05/04/2022 What is your exercise level? None Information not available 09/10/2024 Mental Status Question Answer Note LastModified by Organizat ion Details LastModified Time Do you feel stressed (tense, restless, nervous, or anxious, or unable to sleep at night)? [id number] Information not available 05/04/2022 Do you have difficulty concentrating, remembering or making decisions? No Information no t available 05/04/2022 Family History Relationship Description Onset Age of this Age Resolved Age Notes LastModified by Organization Details LastModified Time Mother Diabetes mellitus [email or web address] Not available 2017 13:17:14 Mother Heart disease [email or web address] Not available 2017 13:17:22 Mother Hypertensive disorder Not available 2017 13:17:42 Medical History Condition Response Anxiety Disorder Y Obesity Y Anemia Y Headaches Y Depression Y Gynecological History Statement/Question Response Abnormal Pap N Flow Moderate Date of Last Mammogram Date of LMP 09/30/2024 STIs/STDs Y HPV Vaccine N Duration of Flow (days) 5 Current Control Method None Date of Last Colonoscopy Most Recent Bone Density Sexually Active? Y Menses Monthly No Date of Last Pap Smear Sexual Problems? N LMP Unknown Hormone Replacement Therapy N Obstetrics History GPAL:G 1 P 0 0 0 0 Type Value Multiple Births 0 Full Term 0 Induced 0 Spontaneous 0 Premature 0 Living 0 Ectopics 0 Total 1 Immunizations Vaccine Type Date Status Note Provider Nam e and Address Organization Details Recorded Time Influenza, split virus, trivalent, preservative 4 completed Gloria eugene, [place] - [facility] 08/04/2024 14:13:36 Tdap 6 completed Gloria eugene, [place] - [facility] 05/30/2022 09:43:22 Tdap 9 completed Not Available [facility] 08/30/2023 11:08:41 Tdap 9 completed Gloria eugene, JOSE - [facility] 09/06/2022 10:09:40 Influenza, split virus, quadrivalent, PF 2 completed Gloria eugene, JO[place] - [facility] 09/06/2022 10:09:40 Past Encounters Encounter ID Performer Location Encounter Start Date Encounter Closed Date Diagnosis/Indication Diagnosis SNOMED-CT Code Diagnosis ICD10 Code Diagnosis Note [id number] Winter Mahoney [facility] [address] [place] [address] 11/25/2017 12:31:40 11/25/2017 13:58:32 Body mass index 30+ - obesity 087037231 Z68.35 Moderate depression 3104 89653 F32.1 [id number] Anselmostormy Teixeira [address] [address] 05/04/2022 13:55:50 05/04/2022 15:22:11 Obesity 562613250 E66.9 Pt compliant with plan of careKasper reviewedme dication compliance discussedL ast uds: 2Control substance agreement on file [id number] Chaya Teixeira [address] [address] 06/01/2022 13:52:39 06/01/2022 14:19:37 Obesity 557495992 E66.9 Pt compliant with plan of careKasper reviewedme dication compliance discussedL ast uds: 2Control substance agreement on fileDiscus sed proper diet and exercise plan [id number] Chaya Teixeira [address] [address] 09/06/2022 09:46:19 09/06/2022 10:55:08 Upper respiratory infection 88446362 J06.9 [id number] Chaya Teixeira [address] [address] 06/04/2023 17:27:24 06/04/2023 18:06:09 Body mass index 40+ - severely obese 639481833 Z68.41 44.7 Morbid obesity 506424409 E66.01 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 discussed meds and side effects with pt.if any concerns or thoughts she can not control stop med and go to ed [id number] Chaya Teixeira [address] [address] 07/01/2023 14:42:15 07/01/2023 15:11:54 History of depression 027472807 Z86.59 Foreign lázaro dy in left ear 0392524909 8643564 T16.2XXA Anxiety 66881552 F41.9 [id number] Chaya Teixeira [address] [address] 07/22/2023 08:36:34 07/22/2023 09:14:26 Anxiety 74567354 F41.9 Obesity 501693690 E66.9 Pt compliant with plan of Kasia reviewedme dication compliance discussedL ast uds: 2Control substance agreement on fileDiscus sed proper diet and exercise plan Depressive disorder 3548 9007 F32.A trial of increase in wellbutrin discussed side effects with pt any concerns or thoughts she can not control go to ed heath [id number] Chaya Teixeira [address] [address] 08/30/2023 11:07:46 08/30/2023 11:36:35 Depressive disorder 12099031 F32.A discussed side effects with pt any concerns or thoughts she can not control go to ed heath Anxiety 27281442 F41.9 [id number] Chaya Teixeira [address] [address] 12/19/2023 09:54:12 12/19/2023 10:27:09 Migraine 58976360 G43.909 explained to pt to go to ed if no improvemen t [id number] Chaya Teixeira [address] [address] 05/25/2024 11:20:30 05/25/2024 13:25:13 Chest wall pain 943014543 R07.89 advised pt to go to ed for eval she refused Acute bronchitis 2673155 2 J20.9 return if worsening or no improvemen t [id number] Anselmostormy nanette [address] [address] 06/04/2024 10:22:30 06/04/2024 11:18:11 Anxiety 18035541 F41.9 Depressive disorder 4178 9007 F32.A any concerns or thoughts she can not control go to ed heath Obesity 434632381 E66.9 Discussed proper diet and exercise plan Migraine 83951883 G43.90 9 explained to pt to go to ed if no improvemen t [id number] Chaya Teixeira [address] [address] 06/09/2024 09:22:56 06/09/2024 10:23:28 Obesity 016674603 E66.9 Discussed proper diet and exercise plan Migraine 11358466 G43.90 9 explained to pt to go to ed if no improvemen tdiscussed med in detail with pt. any issues go to ed or returnretu rn in 1 month for eval of meds and labs [id number] Anselmostormy nanette [address] [address] 07/07/2024 09:49:14 07/07/2024 10:33:32 Leukocytosis 614536363 D72.829 Migraine 77393171 G43.90 9 explained to pt to go to ed if no improvemen tdiscussed med in detail with pt. any issues go to ed or returnretu rn in 1 month for eval of meds Obesity 817754729 E66.9 Discussed proper diet and exercise [place] 1 lbs continue diet and exercise [id number] Madhavshree nanette [address] [address] 08/04/2024 10:51:26 08/04/2024 11:38:25 Obesity 983482428 E66.9 Discussed proper diet and exercise plancontin ue diet and exercise Active or passive immunization 446892845 Z23 Migraine 72535154 G43.90 9 explained to pt to go to ed if no improvemen tdiscussed med in detail with pt. any issues go to ed or returnretu rn in 1 month for eval of meds [id number] Chaya Teixeira APRN [address] [address] 08/25/2024 11:29:08 08/25/2024 12:04:05 Upper respiratory infection 88998872 J06.9 no sign of a bacterial infection. likely viral. viruses can take 7-14 days to run their course. nasal saline and bulb syringe to remove nasal drainage to help with congestion . monitor temp. Tylenol or Motrin as needed for pain or fever. encourage fluids, water, Gatorade, power aide, Pedialyte if /tod dler/child warm salt water gargles warm fluids sore throat lozenges sleep elevated humidifier /vaporizer follow up immediatel y for new or worsening symptoms or no noticeable improvemen t over the next 48-72 hours Acute bronchitis 4867188 2 J20.9 return if worsening or no improvemen t [id number] Chaya Teixeira APRN [address] [address] 09/01/2024 10:36:35 09/01/2024 11:34:27 Migraine 15487404 G43.909 explained to pt to go to ed if no improvemen tdiscussed med in detail with pt. any issues go to ed or returnretu rn in 1 month for eval of meds Candidiasis of mouth 797 92182 B37.0 discussed to rinse mouth when using inhalersif worsening or no improvemen t return [id number] Chaya Teixeira [employer] [address] [address] 09/10/2024 13:07:01 09/10/2024 13:57:54 General examination of patient 186038223 Z00.00 Screening for cardiovascular system disease 673133534 Z13.6 Endocrine/ metabolic screening 434575355 Z13.228 Exercises education, guidance, and counseling 690795780 Z71.82 The patient was advised to continue a healthy diet and exercise regularly. Dietary ma nagsamuel surveillance 078349706 Z71.3 Body mass index 40+ - severely obese 434670638 Z68.41 42.4 BMI Morbid obesity 110602252 E66.01 Anxiety 25273061 F41.9 any thoughts or concerns return or be seen in edmed discussed in detail Migraine 77859793 G43.90 9 explained to pt to go to ed if no improvemen tdiscussed med in detail with pt. any issues go to ed or return HIV screen ing declined 6923934061 31543 Z53.20 Hepatitis C screening declined 6714747006 5105 Z53.20 [id number] Chaya Teixeira [address] [address] 10/01/2024 15:20:44 10/01/2024 15:48:19 Obesity 596302638 E66.9 Discussed proper diet and exercise plancontin ue diet and exercise Anxiety 52220266 F41.9 any thoughts or concerns return or be seen in edmed discussed in detail Migraine 88650182 G43.90 9 explained to pt to go to ed if no improvemen tdiscussed med in detail with pt. any issues go to ed or return Attention deficit hyperactivity disorder 043425581 F90.9 [id number] Chaya Teixeira [address] [address] 12/25/2024 11:02:59 12/25/2024 11:46:34 Obesity 980596664 E66.9 Discussed proper diet and exercise plancontin ue diet and exercisest op topamax Long-term drug therapy 041318074 Z79.437 [id number] Chaya Teixeira [address] [address] 01/18/2025 15:09:49 01/18/2025 16:05:17 Elevated blood-pressure reading without diagnosis of hypertension 023256830 R03.0 stop adipexmoni tor bp keep log bring to appointmen rashida Valadezhalle a of lower extremity 527278410 R20.2 labsif worsen return or go to ed for eval [id number] Chaya Teixeira APRN [address] [address] 01/22/2025 11:02:06 01/22/2025 11:40:31 Body mass index 30+ - obesity 808971391 E66.9 Discussed proper diet and exercise plan Mild depression 74286834 3 F32.A any concerns or thoughts she can not control go to ed heath Mild anxiety 65063670 F4 1.9 any thoughts or concerns return or be seen in edmed discussed in detail [id number] Chaya Teixeira APRN [address] [address] 05/07/2025 10:51:03 05/07/2025 11:34:55 Chest pain 08753688 R07.9 advised pt to go to ed for eval she refused, going to see dr trivedi office Intermitte nt palpitations 932348039 R00.2 going to see reji nowonce heart has been ruled out will address anxiety/st ress Health Concerns Section Related Observation LastModified by Organization Detai ls LastModified Time None Recorded Concern Status LastModified by Organization Details LastModified Time None Recorded Advance Directives Directive N: Payers Insurance Date Sequence Insurance Name Policy Number Policy Carrasquillo Covered Member ID Carrasquillo Member ID Guarantor Name 05/06/2025 [place] [employer] (MEDICAID) Miley Elizabeth [id number] Miley Elizabeth 11/25/2017 1 *SELF PAY* As delmi Elizabeth 05/06/2025 1 [facility] (MEDICAID O) Miley Elizabeth [id number] Miley Elizabeth Notes Date Note Type Note Provider Name and Address Organization Details Recorded Time 10/01/2024 text/html 34 yr old female presents for a weight loss follow up and refills. pt down 7 lbs and states her headaches are well controlled. pt states she would like to be referred somewhere for her adhd Chaya Teixeira APRN [address], [place], [address], [place] - [facility] 10/01/2024 15:47:52 12/25/2024 text/html 34 yr old female presents for a weight loss follow up- topamax is not working for her. pt has tried adipex in past and did well. pt states she has been eating well and taking topamax but has not been successful. Chaya KATE fitzpatrick [address], [place], [address], [place] - [facility] 12/25/2024 11:54:42 01/18/2025 text/html 34 year old deniz carpio who presents to the office today with concerns of recent high blood pressure, pt states she has been watching it at home and it has been higher than normalalso states she feels like she is tingling from the waist down for over 1 week. pt states her legs, feet and toes tingle. good blood flow and not cold just has a tingling feeling Chaya Teixeira APRN [address], [place], [address], [place] - [facility] 01/18/2025 16:21:16 01/22/2025 text/html 34 year old deniz carpio who presents to the office today for a follow up on weight loss- had to stop phentermine due to htn Anselmostormy KATE fitzpatrick [address], [place], [address], [place] - [facility] 03/08/2025 11:19:12 05/07/2025 text/html 35 year old deniz carpio who presents to the office today with concerns of chest pain, heart palpitations, body feels heavy/tingling, dizzy spells, problems sleeping.has not had bupropion for 2 1/2 months - pt states she forgot to take med and then forgot to get refills- states she is going though alot at home and thinks anxiety could be triggering episodes but has a strong family hx Anselmostormy KATE fitzpatrick [address], [place], [address], [place] - [facility] 05/07/2025 11:29:34 OBGyn Episode No OBEpisode recorded.
[2025-05-07 13:33] LABS: Hematocrit 43.4 % (37.0-47.0); Hemoglobin 14.9 g/dL (12.2-16.2); Immature Granulocytes % 0.2 %; Mean Corpuscular HGB Conc 34.3 g/dL (31.8-35.4); Mean Corpuscular Hemoglobin 31.0 pg (27.0-31.2); Mean Corpuscular Volume 90.2 fl (81-99); Nucleated Red Blood Cells % 0 %; Platelet Count 282 K/mm3 (142-424); Red Blood Count 4.81 M/mm3 (4.20-5.40); Red Cell Distribution Width-SD 38.8 fL; White Blood Count 8.8 K/mm3 (4.8-10.8)
[2025-05-07 14:06] LABS: Alanine Aminotransferase 20 U/L (12-78); Albumin Level 4.6 g/dl (3.5-5.0); Alkaline Phosphatase 79 U/L (38-126); Anion Gap 12.2 mEq/L (5-15); Aspartate Amino Transferase 22 U/L (14-36); Bilirubin,Direct 0.3 mg/dl (0.0-0.4); Bilirubin,Indirect 0.2 mg/dL (0.0-0.9); Bilirubin,Total 0.5 mg/dl (0.2-1.3); Bilirubin,Unconjugated 0.3 mg/dL (0.0-1.1); Blood Urea Nitrogen 6 mg/dl (7-17); Calcium 9.6 mg/dl (8.4-10.2); Carbon Dioxide 28 mmol/L (22.0-30.0); Chloride 103 mmol/L (98-107); Cholesterol 148 mg/dl (140-200); Creatinine,Serum 0.60 mg/dl (0.52-1.04); Estimated Glomerular Filt Rate 113 ml/min (>60); GFR (African American) 137 ML/MIN (>60); Glucose 95 mg/dl (74-100); HDL Cholesterol 36 mg/dl (40-60); Potassium 4.2 mmoL/L (3.5-5.1); Sodium 139 mmol/L (136-145); Total Protein,Serum 7.2 g/dl (6.3-8.2); Triglycerides 147 mg/dl (30-150)
[2025-05-07 14:22] LABS: Free Thyroxine Index 3.3 ug/dL (5.93-13.13); T4 (Thyroxine) 11.1 ug/dl (5.53-11.0); Triiodothryronine (T3) Uptake 30 % (23.5-40.5)
[2025-05-07 14:24] LABS: Hemoglobin A1C 6.2 % (4.0-6.0)
[2025-05-07 14:35] LABS: Thyroid Stimulating Hormone 1.59 uIU/mL (0.465-4.68)
== END 2025-05-07 23:59 | disposition home or self-care (01) ==
LOC: LAB 13:04
PROVIDERS: PCP Nurse Practitioner Family; Visit Provider Physician Assistant
DX: E11.9 Type 2 diabetes mellitus without complications (principal); E78.2 Mixed hyperlipidemia; I11.9 Hypertensive heart disease without heart failure; I20.89 Other forms of angina pectoris; J45.909 Unspecified asthma, uncomplicated; R94.31 Abnormal electrocardiogram [ECG] [EKG]; Z82.49 Family history of ischemic heart disease and other diseases of the circulatory system; Z72.0 Tobacco use; E66.01 Morbid (severe) obesity due to excess calories
CPT/HCPCS: 36415; 71046; 80048; 80061; 80076; 83036; 84436; 84443; 84479; 85025

== ENCOUNTER 2025-05-27 10:52 | Outpatient (CLI) | payer OTHER, SELFPAY ==
--- NOTE | 2025-05-27 | CA_ITS ---
APPROVED REPORT Exam: Pharmacologic Technologist: Kylee Pettit Ht: 5 ft 8 in Wt: 269 lbs BSA: 2.32 m2 Medical History Medications: atorvastatin, aspirin, nebivolol Stress Test Details Test: Lexiscan Reason for pharmacologic stress test: physical limitation. HR Resting HR: 63 bpm Max Heart Rate (APMHR): 184.955672 bpm Max HR Achieved: 83 bpm Target HR (85% APMHR): 156.225786 bpm % of APMHR: 45.11 Recovery HR: 74 bpm BP Resting BP: 144.0/72.0 mmHg Max BP: 144.0/72.0 mmHg Recovery BP: 130.0/69.0 mmHg ECG Resting ECG: SR no ectopy Stress ECG Conclusion Symptoms: None. Arrhythmias/Ectopy: None. ST-T Changes: Less than 1mm. Electronically signed by : Liliane Snyder MD 05/28/2025 09:52:38
--- NOTE | 2025-05-27 11:22 | CA_ITS ---
APPROVED REPORT EXAM: Comprehensive 2D, Doppler, and color-flow Echocardiogram Neuropathologist: MARIANNA Nunez, RVS Ht: 5 ft 8 in Wt: 269lbs BSA: 2.32 BP: 170/99 mmHg Indications: Palpitations, CP, Family hx-CAD, Smoker Echo Enhancing Agent Indication: Rule out Shunt Agent(s) / Amount(s) Used: Agitated Saline 20 cc Comments: 3 phase bubble study with right to left shunt with sniff 2D Dimensions Left Atrium 3.87 cm F: 2.7 - 3.8 LA Volume 95.30 mL LA Volume Index 41.912437 mL/m2 (M/F) 16-34 M-Mode Dimensions RVDd 1.89 cm (0.9-2.6) LA Diam 4.24 cm (1.9-4.0) LVDd 5.02 cm (3.5-5.7) LVDs 3.28 cm (3.5-5.7) IVSd 1.28 cm (0.6-1.1) PWd 1.04 cm (0.6-1.1) EF (Teich) 67.10% EPSs 0.48 cm FS 37.50% EDV (Teich) 132.40 mL TAPSE 2.30 (<1.7) ESV (Teich) 43.50 mL LV Diastology E Decel Time 233 (160-240 msec) E/A Ratio 1.94 MED A' 9.00 cm/s LAT A' 9.20 cm/s Pulm Vein s 49.00 cm/sec Pulm Vein d 25.00 cm/sec Ar-A Duration 110.00 msec Aortic Valve CHRISTIANNE Index 0.99 cm2/m2 AoV Peak Christian. 136.0 (50-130 cm/s) AO Peak GR. 7.40 mmHg AO Mean GR. 3.60 (<5 mmHg) AO VTI 31.4 (18-25 cm) CHRISTIANNE (VTI) 2.34 (2.5-4.5 cm2) Mitral Valve MV A Velocity 57.0 (40-130 cm/s) E/A Ratio 1.94 Tricuspid Valve TR P. Velocity 195.00 cm/s RAP Estimate 10.00 mmHg RVSP 25.20 mmHg Left Ventricle The left ventricle is normal size. Left ventricular systolic function is normal. The left ventricular ejection fraction is within the normal range. There is normal left ventricular wall thickness. There is normal LV segmental wall motion. The left ventricular diastolic function is normal. LVEF is 55% Right Ventricle The right ventricle is normal size. The right ventricular systolic function is normal. Atria The left atrium is mildly dilated. The right atrium size is normal. 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 Agitated saline administration demonstrates presence of interatrial shunt. Aortic Valve The aortic valve opens well. There is no hemodynamically significant aortic valvular stenosis. No aortic regurgitation is present. Mitral Valve The mitral valve is normal in structure. No evidence of mitral valve stenosis. Trace mitral regurgitation is present. Tricuspid Valve The tricuspid valve leaflets are thin and pliable. Trace tricuspid regurgitation. There is insufficient TR jet to estimate RVSP. Pulmonic Valve The pulmonary valve is grossly normal in structure. Trace pulmonic valve regurgitation is present. Great Vessels The aortic root is normal in size. IVC is normal in size and collapses >50% with inspiration. Pericardium There is no pericardial effusion. Other Information Study Quality: Fair Conclusion Normal biventricular systolic function. Mild LA dilation. 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 Agitated saline administration demonstrates presence of interatrial shunt. In the setting of normal right sided size and function, no further evaluation is generally required for the interatrial shunt. Clinical correlation is recommended. Electronically signed by : Liliane Snyder MD 05/28/2025 09:02:40
--- NOTE | 2025-05-27 11:30 | NM_ITS ---
APPROVED REPORT Exam: Nuclear Stress Test Indication: Chest pain, Palpitations, Fatigue, Dizziness, HTN, High cholesterol, Tobacco use, Family history Patient Location: Outpatient Stress Tech: Kylee Miller PA Tech:LINDSAY Osborne RT(R)(N) Ht: 5 ft 9 in Wt: 270 lbs Bra Size: C HR: 63 bpm BP: 144/72 mmHg BSA: 2.35 m2 TID: 1.17 BMI: 39.8 History: Chest pain, Palpitations, Fatigue, Dizziness, HTN, High cholesterol, Tobacco use, Family history Procedure: Patient received 0.4 mg of intravenous Lexiscan, resting heart rate 63 bpm, resting blood pressure 144/72 mmHg, with Lexiscan maximum heart rate achieved was 83 bpm which is % of the maximum predicted heart rate and blood pressure was 135/78 mmHg. With Lexiscan, patient denied any complaint of chest pain. Cardiac Stress and Resting SPECT Images: Cardiac Stress and Resting SPECT images were obtained using technetium 99m Myoview 30.1 mCi stress and 10.86 mCi at rest. Raw images demonstrate significant soft tissue overlap with the cardiac borders. This may affect the diagnostic interpretation of the study findings. Resting and stress imaging in supine positions demonstrate a medium sized, moderate, fixed perfusion defect in the anterior LV wall. This is no longer visualized with prone stress imaging. Findings are suggestive of soft tissue attenuation. Gated imaging demonstrate normal global and regional LV systolic function. LVEF is calculated at 56%. Conclusion: Soft tissue attenuation is present. No evidence of fixed or reversible perfusion defects. Gated imaging demonstrate normal global and regional LV systolic function. LVEF is calculated at 56%. Electronically signed by : Liliane Snyder MD 05/28/2025 09:50:14
[2025-05-27] MEDS: ISOTOPE MYOVIEW (PER STUDY) 1 DOSE IV (13:40)
[2025-05-27] MEDS: SODIUM CHLORIDE 0.9% 10ML SYR (RAD ONLY) 10 ML IV ×2 (13:40)
== END 2025-05-27 23:59 | disposition home or self-care (01) ==
LOC: RAD 10:52
PROVIDERS: PCP Nurse Practitioner Family; Visit Provider Physician Assistant
DX: I11.9 Hypertensive heart disease without heart failure (principal); Q21.10 Atrial septal defect, unspecified; I20.89 Other forms of angina pectoris; E78.00 Pure hypercholesterolemia, unspecified; R94.31 Abnormal electrocardiogram [ECG] [EKG]; R00.2 Palpitations; F17.200 Nicotine dependence, unspecified, uncomplicated; Z82.49 Family history of ischemic heart disease and other diseases of the circulatory system
CPT/HCPCS: 78452; 93016; 93017; 93018; 93306; A9502; J2785